=== PATIENT | male | born 1945 | race Hispanic/Latino ===

== ENCOUNTER 2017-11-24 08:54 | Outpatient (CLI) | payer MEDICARE ==
[2017-11-24 09:36] LABS: Anion Gap 11 mmol/L (10-20); BUN (Urea Nitrogen) 13 mg/dL (8.4-25.7); Calc. Creatinine Clearance 0 mL/min (70-130); Calcium 9.9 mg/dL (7.8-10.44); Carbon Dioxide 28 mmol/L (23-31); Chloride 101 mmol/L (98-107); Estimated GFR-MDRD 81; Glucose 101 mg/dL (83-110); Potassium 4.2 mmol/L (3.5-5.1); Sodium 136 mmol/L (136-145)
--- NOTE | 2017-11-24 11:16 | CT ---
CT ABDOMEN AND PELVIS WITHOUT AND WITH CONTRAST: COMPARISON: None. History Hematuria. Hypertension. TECHNIQUE: Multiple contiguous axial images were obtained in a CT of the abdomen and pelvis without and with IV contrast. Postcontrast images were obtained in the nephrographic and expiratory phases. Coronal ref ormats were performed. FINDINGS: The kidneys show no evidence of calcifications or hydronephrosis. There are hypodensities in the gordy ateral kidneys which are too small to characterize. Both ureters are normal in appearance without foc al abnormality. The urinary bladder is unremarkable. No filling defects are present within the nav l collecting systems. The liver, gallbladder, adrenal glands, spleen, and pancreas are unremarkable. No free air, free flu id, or stranding changes are seen in the abdomen or pelvis. The small bowel are unremarkable. There is scattered diverticula in the colon. The appendix is not definitely seen. Atherosclerotic calcifications are seen in the aorta. No abdominal or pelvic lymphadenopathy are see n. Degenerative changes are seen in the spine. The visualized inferior thorax and abdominal wall soft t issues are unremarkable. IMPRESSION: 1. Bilateral renal hypodensities are too small to definitely characterize but could represent small cysts. 2. Diverticulosis. POS: [facility]
[2017-11-24] MEDS ORDERED: Iopamidol 370 76% 100 ML VIAL ONE (15:48)
== END 2017-11-24 08:55 | disposition home or self-care (01) ==
LOC: CT 08:54
PROVIDERS: ATTEND Urology
DX: R31.29 Other microscopic hematuria (principal); K57.90 Diverticulosis of intestine, part unspecified, without perforation or abscess without bleeding
CPT/HCPCS: 74178; 80048

== ENCOUNTER 2018-12-16 07:52 | Outpatient (CLI) | payer MEDICARE ==
--- NOTE | 2018-12-16 10:19 | MRI ---
MRI RIGHT KNEE WITHOUT IV CONTRAST: HISTORY: S83.241, tear medial meniscus with constant right knee pain and swelling. FINDINGS: There is evidence for suprapatellar joint fluid and suprapatellar joint distention. Fairly extensive , irregular cartilage loss noted involving the patellar cartilage, medially, laterally, and centrally , with some subchondral cystic changes of the lateral facet. There is irregular cartilage loss in th e trochlear groove and also in the medial compartment, with a small focus of osteochondral abnormal m arrow signal of the medial femoral condyle secondary to a probable more remote appearing osteochondra l injury. The lateral meniscus is unremarkable. There is abnormal signal associated with the medial meniscus, evidence for a complex tear, which appears to have a flap component as well as a fairly pr ominent horizontal component involving the posterior horn and extending into the body. There is some abnormal height signal associated with the popliteus tendon insertion, evidence for mucoid degenerat ion. The fibular collateral ligament and the biceps femoris tendon insertion regions appear unremark able. The medial collateral ligament complex appears unremarkable. The quadriceps and patellar tend ons are intact. There is some superficial infrapatellar fluid, raising concern for bursitis. There is some increased signal within the semimembranosus tendon, evidence for some tendinopathy, as well a s some slightly loculated appearing fluid within the semimembranosus bursa, raising concern for semim embranosus bursitis. IMPRESSION: 1. Suprapatellar joint fluid with distention, evidence for effusion. 2. Complex tear of the medial meniscus. 3. Evidence for chondromalacia patella with some medial compartment cartilage loss, as well as a sma ll focal osteochondral defect of the medial femoral condyle, evidence for some semimembranosus tendin osis and somewhat loculated fluid in the semimembranosus bursa, evidence for possible bursitis. 4. Some superficial fluid in the superficial prepatellar region, concerning for the possibility of a ssociated bursitis. 5. Minimal increased signal within the popliteus tendon, at the insertion, possibly some tendinopath y. 6. Other findings as above. POS: [facility]
== END 2018-12-16 07:53 | disposition home or self-care (01) ==
LOC: BICMRI 07:52
PROVIDERS: ATTEND Orthopaedic Surgery
DX: S83.231A Complex tear of medial meniscus, current injury, right knee, initial encounter (principal); M25.461 Effusion, right knee; M22.41 Chondromalacia patellae, right knee; M76.9 Unspecified enthesopathy, lower limb, excluding foot

== ENCOUNTER 2018-12-28 00:26 | Outpatient (CLI) | payer MEDICARE ==
[2018-12-28 15:25] LABS: #Basophils 0.1 thou/uL (0.0-0.2); #Eosinphils 0.4 thou/uL (0.0-0.7); #Lymphocytes 1.8 thou/uL (1.20-3.40); #Monocytes 0.6 thou/uL (0.11-0.59); #Neutrophils 6.1 thou/uL (1.40-6.50); %Basophils 0.8 % (0.0-1.0); %Eosinophils 4.7 % (0.0-10.0); %Lymphocytes 19.7 % (21.0-51.0); %Neutrophils 67.9 % (42.0-75.0); Mean Corpuscular HGB CONC 32.6 g/dL (32.0-36.0); Mean Corpuscular Hemoglobin 28.5 pg (27.0-31.0); Mean Corpuscular Volume 87.3 fL (78.0-98.0); Mean Platelet Volume 7.1 fL (7.4-10.4); Platelet Count 266 thou/uL (130-400); RBC Distribution Width 12.1 % (11.5-14.5); Red Blood Cell (RBC) Count 4.92 mill/uL (4.70-6.10)
[2018-12-28 15:44] LABS: Anion Gap 14 mmol/L (10-20); BUN (Urea Nitrogen) 12 mg/dL (8.4-25.7); Calc. Creatinine Clearance 0 mL/min (70-130); Carbon Dioxide 25 mmol/L (23-31); Chloride 105 mmol/L (98-107); Estimated GFR-MDRD 76; Glucose 113 mg/dL (83-110); Potassium 3.7 mmol/L (3.5-5.1); Sodium 140 mmol/L (136-145)
--- NOTE | 2018-12-29 07:50 | EKG ---
Test Reason : Blood Pressure : / mmHG Vent. Rate : 075 BPM Atrial Rate : 075 BPM P-R Int : 140 ms QRS Dur : 080 ms QT Int : 370 ms P-R-T Axes : 048 026 013 degrees QTc Int : 413 ms Normal sinus rhythm with sinus arrhythmia Artifact noted ? electrical. Normal ECG When compared with ECG of 15-NOV-2015 10:05, Vent. rate has increased BY 33 BPM Confirmed by ZELDA JACOBS ([id number]) on 12/29/2018 7:49:28 AM Referred By: OSCAR Confirmed By:ZELDA JACOBS
== END 2018-12-28 00:27 | disposition home or self-care (01) ==
LOC: LABBT 00:26
PROVIDERS: ATTEND Orthopaedic Surgery
DX: Z01.818 Encounter for other preprocedural examination (principal); S83.241A Other tear of medial meniscus, current injury, right knee, initial encounter
CPT/HCPCS: 80048; 85025; 93005; 93010

== ENCOUNTER 2019-01-01 06:24 | Day surgery (SDC) | payer MEDICARE ==
[2018-12-28 14:14] VITALS: BMI 26.3
[2019-01-01] MEDS ORDERED: PROPOFOL 20 ML ONE (08:04)
--- NOTE | 2019-01-01 09:58 | OP ---
DATE OF PROCEDURE: 01/01/2019 PREOPERATIVE DIAGNOSIS: Medial and lateral meniscus tear, right. POSTOPERATIVE DIAGNOSIS: Medial and lateral meniscus tear, right. ANESTHESIA: General. ESTIMATED BLOOD LOSS: Minimal. SPECIMEN: None. DRAINS: None. COMPLICATION: None. TOURNIQUET: Not used. DESCRIPTION OF PROCEDURE: The patient was taken to the operating room, where general anesthesia was induced. The right leg was prepped and draped in usual sterile fashion. I placed the scope through a lateral portal and probe through a medial portal. FINDINGS OF SURGERY: Very mild chondromalacia patella, some grade 3 chondromalacia, medial femoral condyle. Lateral compartment did not have any arthritis, complex tear of the medial and lateral meniscus, intact ACL. Using a scope and basket forceps, removed a good portion of the medial meniscus, took this all the way back to a stable rim and probing then confirmed it was stable. I used a shaver to smooth the margins of the meniscectomy. The same was procedure performed on the lateral compartment using basket forceps to begin the meniscectomy and completed this with a shaver. Probing confirmed it was stable. Irrigation performed copiously to remove all the loose piece of cartilage from the meniscectomy after irrigating the knee and draining it. Sterile dressings applied. Job ID: [id number]
[2019-01-01] MEDS ORDERED: Bupivacaine HCl 0.5%/Epinephrine 1:200,000/PF 30 ml Vial ONE (14:08)
[2019-01-01] MEDS ORDERED: Lidocaine 2% w/Epinephrine 1:200K 20 ML VIAL ONE (14:08)
[2019-01-01] MEDS ORDERED: PROPOFOL 200 MG/20 ML VIAL ONE (15:51)
[2019-01-01] MEDS ORDERED: Lidocaine 1% PF 5 ML VIAL ONE (15:51)
[2019-01-01] MEDS ORDERED: Ondansetron PF 4 MG/2 ML Vial ONE (15:51)
== END 2019-01-01 12:15 | disposition home or self-care (01) ==
LOC: SDC 06:24
PROVIDERS: ATTEND Orthopaedic Surgery
PROC: 0SBC4ZZ Excision of Right Knee Joint, Percutaneous Endoscopic Approach (ICD-10-PCS; principal; 2019-01-01)
PROC: 0SBC4ZZ Excision of Right Knee Joint, Percutaneous Endoscopic Approach (ICD-10-PCS; 2019-01-01)
DX: S83.231A Complex tear of medial meniscus, current injury, right knee, initial encounter (principal); S83.271A Complex tear of lateral meniscus, current injury, right knee, initial encounter; M22.41 Chondromalacia patellae, right knee; E78.5 Hyperlipidemia, unspecified; I10 Essential (primary) hypertension; K21.9 Gastro-esophageal reflux disease without esophagitis; N52.9 Male erectile dysfunction, unspecified; H81.10 Benign paroxysmal vertigo, unspecified ear; Z79.82 Long term (current) use of aspirin; Z79.899 Other long term (current) drug therapy; Z88.8 Allergy status to other drugs, medicaments and biological substances; Z98.890 Other specified postprocedural states
CPT/HCPCS: J2704

== ENCOUNTER 2019-11-05 08:53 | Outpatient (CLI) | payer MEDICARE ==
[2019-11-05 09:49] LABS: Hemoglobin 15.7 g/dL (14.0-18.0); Mean Corpuscular HGB CONC 33.4 g/dL (32.0-36.0); Mean Corpuscular Hemoglobin 29.1 pg (27.0-31.0); Mean Corpuscular Volume 86.9 fL (78.0-98.0); Mean Platelet Volume 7.3 fL (7.4-10.4); Platelet Count 240 thou/uL (130-400); RBC Distribution Width 12.1 % (11.5-14.5); White Blood Cell (WBC) Count 6.5 thou/uL (4.8-10.8)
[2019-11-05 09:58] LABS: PTT 27.3 SEC (22.9-36.1); Prothrombin Time 12.9 SEC (12.0-14.7)
[2019-11-05 10:12] LABS: Bacteria/HPF None Seen HPF (None Seen); Bilirubin Negative (Negative); Blood, Urine Negative (Negative); Clarity Clear (Clear); Glucose, Urine (Dipstick) Normal (Negative); Leukocyte Negative Leu/uL (Negative); Mucous/LPF Rare LPF (<2+); Nitrite Negative (Negative); Protein, Urine (Dipstick) Negative (Neg-Trace); RBC/HPF 0-3 HPF (0-3); Squamous Epithelial None Seen HPF (0-3); Urobilinogen Normal mg/dL (Less than 2); WBC/HPF 0-3 HPF (0-3)
[2019-11-05 10:19] LABS: Anion Gap 12 mmol/L (10-20); BUN (Urea Nitrogen) 10 mg/dL (8.4-25.7); Calc. Creatinine Clearance 0 mL/min (70-130); Calcium 9.6 mg/dL (7.8-10.44); Carbon Dioxide 30 mmol/L (23-31); Chloride 103 mmol/L (98-107); Estimated GFR-MDRD 80; Glucose 118 mg/dL (83-110); Potassium 4.1 mmol/L (3.5-5.1); Sodium 141 mmol/L (136-145)
== END 2019-11-05 08:54 | disposition home or self-care (01) ==
LOC: LABBT 08:53
PROVIDERS: ATTEND Urology
DX: Z01.818 Encounter for other preprocedural examination (principal); Z12.5 Encounter for screening for malignant neoplasm of prostate; N40.1 Benign prostatic hyperplasia with lower urinary tract symptoms; R39.198 Other difficulties with micturition; N52.9 Male erectile dysfunction, unspecified; R35.1 Nocturia; N35.919 Unspecified urethral stricture, male, unspecified site; R39.11 Hesitancy of micturition
CPT/HCPCS: 80048; 81001; 85027; 85610; 85730; 87086; 93005; 93010

== ENCOUNTER 2019-11-17 05:51 | Inpatient (IN) | payer MEDICARE ==
[2019-11-05 09:19] VITALS: BMI 28.0
[2019-11-17] MEDS ORDERED: Levofloxacin 500 mg/D5W 100 ml Premix Bag ONE (06:20)
[2019-11-17] MEDS ORDERED: Iothalamate Meglumine 60% 50 ML VIAL FS ONE (06:45)
[2019-11-17] MEDS ORDERED: Fentanyl 100 MCG/2 ML VIAL ONE ×2 (07:14→10:16)
[2019-11-17] MEDS ORDERED: Oxybutynin 5 MG TAB ONE ×3 (08:39→08:40)
[2019-11-17] MEDS ORDERED: Phenazopyridine HCl 97.5 MG TABLET ONE (08:39)
--- NOTE | 2019-11-17 09:55 | OP ---
DATE OF PROCEDURE: 11/17/2019 PREOPERATIVE DIAGNOSES: 1. A 74-year-old male with history of benign prostatic hyperplasia. 2. Meatal stenosis. 3. Nonobstructing urethral strictures. POSTOPERATIVE DIAGNOSES: 1. A 74-year-old male with history of benign prostatic hyperplasia. 2. Meatal stenosis. 3. Nonobstructing urethral strictures. PROCEDURES PERFORMED: Cystoscopy, meatal calibration dilatation, UroLift implant x9. ANESTHESIA: LMA. COMPLICATIONS: None apparent. SPECIMENS: None. ESTIMATED BLOOD LOSS: Minimal. DRAINS: 18-Marshallese 10 mL Jackman catheter to gravity. INDICATIONS FOR PROCEDURE AND HISTORY: Mr. Moralse is a pleasant 74-year-old male, with history of BPH. The patient has had symptoms of BPH, slow stream, hesitancy, and occasional split stream. He underwent workup for UroLift and desired to proceed. Risks and complications of the procedure, has been discussed with him in detail including, but not limited to, bleeding, pain, infection, injury to adjacent organs, chronic pain, injury to adjacent structures distal to the ureteral orifices, neurovascular bundle, chronic pain, possible need for secondary procedure was reviewed with him in detail and he desired to proceed. DESCRIPTION OF PROCEDURE: After an informed consent was signed, the patient was taken to the operating room, placed in a dorsal lithotomy position with the genital area prepped and draped in the usual surgical sterile fashion. We initially attempted TIVA, however, due to laryngospasm, he had to be converted to LMA, in which he tolerated this procedure uneventfully. A 21-Marshallese cystoscope was initially utilized, however, it was difficult to pass due to mild meatal stenosis. His meatus was calibrated to 16-Marshallese, with [place] sounds and subsequently dilated to 26-Marshallese without difficulty. Subsequently, a 21-Marshallese scope passed without significant issues. He does have subtle early bulbar proximal penile urethral strictures, however, these are not obstructing. They were very subtle early annular narrowing, not warranting treatment and I was able to pass the scope without significant issues. Prostatic urethra was staged, which demonstrates bilobar hyperplasia of the prostate demonstrating moderate obstruction. There was asymmetric enlargement of the right lobe. The bladder was entered and the UOs are about 3 to 4 mm in proximal to the bladder neck, there was no evidence of bladder stones of concern. At this time, we transitioned to the UroLift device obturator scope. His urethra was then re-staged and we proceeded to implant the first implant on the left lateral lobe. Care was taken to stay approximately 1.5 cm proximal to the bladder neck. The implant was delivered on the left side and subsequently on the right side. As there was asymmetric enlargement, moreover, more firm right lateral lobe. He did have one implant and right with bone strike , however I was able to salvage the implant and deliver adequately. He did require 6 implants on the right side as right lateral lobe was more challenging to compress with Urolift implant.. With subsequent placement, I was able to create a wide bladder neck. At the level of the verumontanum, there was some apical component, however, this was at the apex and did not warrant treatment, adequate channel more proximally. He tolerated the procedure uneventfully. I was able to pass an 18-Marshallese catheter without significant issues, 10 mL insufflated and attached to gravity bag. He will be discharged with an indwelling Jackman catheter due to concomitant meatal stenosis dilatation. He will see me on Friday for catheter removal. He is discharged with ciprofloxacin for 7 days, Azo p.r.n., he is to continue his Flomax for now. Job ID: [id number] [facility]
[2019-11-17] MEDS ORDERED: Ondansetron PF 4 MG/2 ML Vial ONE (10:05)
[2019-11-17] MEDS ORDERED: Lidocaine 1% PF 5 ML VIAL ONE (10:05)
[2019-11-17] MEDS ORDERED: Glycopyrrolate 0.2 MG/ML 5 ML SYRINGE ONE (10:05)
[2019-11-17] MEDS ORDERED: PROPOFOL 200 MG/20 ML VIAL ONE (10:05)
[2019-11-17] MEDS ORDERED: Meperidine HCl/PF 25 MG/ML VIAL ONE (11:37)
[2019-11-17] MEDS ORDERED: Meropenem 1 GM in Sodium Chloride 0.9% 100 ML IVPB SCH (14:00)
[2019-11-17] MEDS ORDERED: MEROPENEM 1 GM/50 ML 1 GM in Premix Bag 1 BAG IVPB SCH (14:00)
[2019-11-17 14:03] LABS: #Lymphocytes 0.5 thou/uL (1.20-3.40); #Monocytes 0.3 thou/uL (0.11-0.59); #Neutrophils 9.9 thou/uL (1.40-6.50); %Basophils 0.1 % (0.0-1.0); %Eosinophils 0.2 % (0.0-10.0); %Lymphocytes 4.8 % (21.0-51.0); %Monocytes 2.7 % (0.0-10.0); %Neutrophils 92.2 % (42.0-75.0); Hemoglobin 14.5 g/dL (14.0-18.0); Mean Corpuscular HGB CONC 33.4 g/dL (32.0-36.0); Mean Corpuscular Hemoglobin 29.2 pg (27.0-31.0); Mean Corpuscular Volume 87.4 fL (78.0-98.0); Mean Platelet Volume 7.4 fL (7.4-10.4); Platelet Count 219 thou/uL (130-400); Red Blood Cell (RBC) Count 4.98 mill/uL (4.70-6.10); White Blood Cell (WBC) Count 10.7 thou/uL (4.8-10.8)
[2019-11-17] MEDS ORDERED: Acetaminophen 325 MG TAB ONE (14:23)
[2019-11-17 14:25] LABS: Anion Gap 13 mmol/L (10-20); BUN (Urea Nitrogen) 16 mg/dL (8.4-25.7); Calc. Creatinine Clearance 88 mL/min (70-130); Calcium 8.7 mg/dL (7.8-10.44); Carbon Dioxide 23 mmol/L (23-31); Chloride 105 mmol/L (98-107); Estimated GFR-MDRD Greater than 90; Glucose 93 mg/dL (83-110); Potassium 4.1 mmol/L (3.5-5.1); Sodium 137 mmol/L (136-145)
[2019-11-17] MEDS ORDERED: Bisacodyl 10 MG SUPP PR PRN (15:59)
[2019-11-17] MEDS ORDERED: Ondansetron PF 4 MG/2 ML Vial IVP PRN (15:59)
[2019-11-17] MEDS ORDERED: Acetaminophen 500 MG TAB PO PRN (15:59)
[2019-11-17] MEDS ORDERED: Phenazopyridine HCl 97.5 MG TABLET PO PRN (15:59)
[2019-11-17] MEDS ORDERED: Mag-Al 1200 mg/1200 mg/30 ML UDCUP PO PRN (15:59)
[2019-11-17] MEDS ORDERED: hydrALAZINE 20 MG/ML VIAL SLOW IVP PRN ×2 (15:59)
[2019-11-17] MEDS ORDERED: diphenhydrAMINE 50 MG/ML VIAL IVP PRN (15:59)
[2019-11-17] MEDS ORDERED: HYDROcodone/Acetaminophen 5/325 mg Tablet PO PRN ×2 (15:59)
[2019-11-17] MEDS ORDERED: Oxybutynin 5 MG TAB PO PRN (15:59)
[2019-11-17] MEDS ORDERED: Vancomycin HCl 1.25 GM in Sodium Chloride 0.9% 250 ML 250 ML IVPB SCH (17:00)
[2019-11-17] MEDS: Sodium Chloride 0.9% 1,000 ML IV SCH ×3 (20:03→22:44)
[2019-11-17] MEDS ORDERED: Vancomycin HCl 1 GM in Premix Bag 1 BAG IVPB SCH (21:00)
[2019-11-17] MEDS: Docusate 100 MG CAP PO SCH (21:23)
[2019-11-17] MEDS: MEROPENEM 1 GM/50 ML 1 GM in Premix Bag 1 BAG IVPB SCH (21:23)
[2019-11-17] MEDS: Famotidine/PF 20 mg/2ml Vial SLOW IVP SCH (21:23)
--- NOTE | 2019-11-17 22:20 | CON ---
DATE OF CONSULTATION: 11/17/2019 REQUESTING PHYSICIAN: Erin Araya DO REASON FOR CONSULTATION: Postoperative medical management. HISTORY OF PRESENT ILLNESS: This is a 74-year-old male with past medical history of hypertension, dyslipidemia, seasonal allergies, receiving unspecified injections and BPH, on medication therapy, who underwent urologic procedure by Dr. Araya on 11/17/2019 for progressive urinary symptoms with operative note suggesting cystoscopy with meatal calibration and dilatation and UroLift implant x9. Preoperatively, the patient was noted to have received Levaquin 500 mg and postoperatively, the patient began to experience rigors and cold chills lasting 30 minutes along with a temperature of reportedly greater than 102. The patient had blood work with CBC, BMP, blood cultures x2 and urine cultures from catheter site. He was administered IV Demerol, IV fluids with normal saline 150 mL/h and initiated on IV vancomycin and IV meropenem and admitted for further evaluation. At bedside, the patient was accompanied by his spouse. He denies any recurrent rigors. He notes similar episode 3 months ago and attributed to his allergy shot. He notes some minimal discomfort at the catheter site. Denies any diaphoresis, nausea, vomiting, diarrhea, angina, dyspnea, or any other acute complaints. He has been ambulatory. Nursing staff notes no acute events. PAST MEDICAL HISTORY: BPH, hypertension, dyslipidemia, seasonal allergies. PAST SURGICAL HISTORY: Herniorrhaphy. SOCIAL HISTORY: The patient is , lives at home with his spouse. He denies tobacco or illicit drug use. He notes social beer use on weekends. ALLERGIES: NONE REPORTED. REVIEW OF SYSTEMS: Pertinent positives as per HPI. Remainder of review of systems negative. MEDICATIONS: Reviewed as per admission medication reconciliation. Inpatient medications reviewed. FAMILY HISTORY: The patient denies any chronic medical comorbidities in family members. PHYSICAL EXAMINATION: VITAL SIGNS: Current temperature 99.5, pulse 57, blood pressure 115/70, oxygen saturation 94% on room air, respirations 16. GENERAL APPEARANCE: This is an elderly male, who is awake, alert, oriented, coherent, lucid, nontoxic in appearance, speaking in full complete sentences. HEENT: Normocephalic, atraumatic. No facial asymmetry. Pupils are equally round. Extraocular muscles are intact. No conjunctival pallor. Mucous membranes are moist. NECK: Supple. CARDIOVASCULAR: S1, S2. Regular rate and rhythm. No harsh murmurs. No reproducible chest wall tenderness to palpation. LUNGS: Bilateral equal air entry on posterior auscultation. Symmetrical chest expansion. No wheezing or rales. ABDOMEN: Soft, nontender, nondistended. EXTREMITIES: No abrasions, cyanosis, or deformities. SKIN: Warm to touch without rash or pallor. GENITOURINARY: Indwelling Jackman catheter with yellow-colored urine. There is urethral meatus tip and paraumbilical region with mild palpation. LABORATORY DATA: WBC 10.7, H and H 14.5/43.5, platelets 219. Chemistry; sodium 137, potassium 4.1, chloride 105, bicarb 23, glucose 93, BUN/creatinine 16/0.82, calcium 8.7. Microbiology culture, no culture results noted. ASSESSMENT: 1. Postoperative fevers, chills, and rigors. Concern for infectious etiology, noting urologic procedure with possible bacterial translocation or infection from instrumentation. The patient had noted orders for blood cultures and urine cultures from catheter ordered by urologist. He was given IV Demerol and has been started on IV vancomycin and meropenem, which can be continued at this time and could be deescalated when the fevers defervesced. Continue to monitor microbiology cultures. Monitor vital signs. No other obvious signs of infection noted at this time. 2. Hypertension, benign. Continue home lisinopril and hydrochlorothiazide. 3. Dyslipidemia. Continue Lipitor. 4. Gastroesophageal reflux disease. Continue PPI. 5. Baseline status post cystoscopy with meatal dilatation and UroLift implant x9 on 11/17/2019. Dr. Araya for benign prostatic hypertrophy and progressive urinary symptoms. 6. History of herniorrhaphy. 7. Deep venous thrombosis prophylaxis; SCDs and ambulation. Thank you for this consultation. We will follow patient along with you while hospitalized. Job ID: [id number]
[2019-11-18] MEDS: Sodium Chloride 0.9% 1,000 ML IV SCH ×5 (03:25→21:33)
[2019-11-18] MEDS: Vancomycin HCl 1.25 GM in Sodium Chloride 0.9% 250 ML 250 ML IVPB SCH ×2 (03:29→16:52)
[2019-11-18] MEDS: MEROPENEM 1 GM/50 ML 1 GM in Premix Bag 1 BAG IVPB SCH ×3 (05:19→21:33)
[2019-11-18 05:33] LABS: #Eosinphils 0.2 thou/uL (0.0-0.7); #Lymphocytes 1.5 thou/uL (1.20-3.40); #Monocytes 0.7 thou/uL (0.11-0.59); #Neutrophils 11.4 thou/uL (1.40-6.50); %Basophils 0.3 % (0.0-1.0); %Eosinophils 1.7 % (0.0-10.0); %Lymphocytes 11.1 % (21.0-51.0); Hemoglobin 12.4 g/dL (14.0-18.0); Mean Corpuscular HGB CONC 33.1 g/dL (32.0-36.0); Mean Corpuscular Hemoglobin 29.2 pg (27.0-31.0); Mean Corpuscular Volume 88.2 fL (78.0-98.0); Mean Platelet Volume 7.3 fL (7.4-10.4); Platelet Count 196 thou/uL (130-400); Red Blood Cell (RBC) Count 4.25 mill/uL (4.70-6.10); White Blood Cell (WBC) Count 13.9 thou/uL (4.8-10.8)
[2019-11-18 05:52] LABS: Anion Gap 6 mmol/L (10-20); BUN (Urea Nitrogen) 12 mg/dL (8.4-25.7); Calc. Creatinine Clearance 90 mL/min (70-130); Calcium 8.2 mg/dL (7.8-10.44); Carbon Dioxide 28 mmol/L (23-31); Chloride 109 mmol/L (98-107); Estimated GFR-MDRD Greater than 90; Glucose 105 mg/dL (83-110); Sodium 139 mmol/L (136-145)
[2019-11-18] MEDS ORDERED: Polyethylene Glycol 3350 17 GM Packet PO PRN (08:07)
--- NOTE | 2019-11-18 08:32 | PRG ---
DATE OF SERVICE: 11/18/2019 SUBJECTIVE: The patient is feeling well, he denies recurrence of fever, chills, rigors. Feeling well. He is having adequate oral intake. Patient seen by Hospitalist yesterday. OBJECTIVE: VITAL SIGNS: Currently are stable. He is 98, 16, 93, 113/61, 93% on room air, heart rate 57 to 48, asymptomatic for bradycardia. ABDOMEN: Soft, nontender, nondistended. GENITOURINARY: Jackman catheter demonstrating yellow, clear urine with no significant hematuria of concern. Preop urine culture negative. Repeat blood culture, urine culture is pending so far. Patient currently on vancomycin and meropenem. IMPRESSION AND PLAN: 1. Mr. Morales is a 74-year-old male with history of benign prostatic hypertrophy, postop day #1, status post meatal dilatation, UroLift implant for BPH procedure. The patient with history of postop fever, rigors. Blood culture, urine culture negative thus far. His labs are stable with white count of 13, hemoglobin 12, creatinine is 0.8. I will continue the broad-spectrum antibiotic therapy until culture and sensitivity has returned. If cultures are negative, I will consider Infectious Disease consult. 2. Similar episode of fever, rigors after allergy injection 3 months ago with workup negative, i.e., CT lumbar puncture, chest x-ray negative, was also seen by Dr. Smart at that time with negative cultures. 3. Recent fever, rigors can be due to possible transient bacteremia despite negative urine culture on appropriate antibiotic regimen preop. The patient is informed that I will keep him in-house until culture result has been finalized. The patient agrees to be observed. Continue ambulation, DVT prophylaxis with bilateral SCDs , increase mobility. 4. History of sinus bradycardia tachycardia syndrome, followed by Dr. Bentley with normal stress test. The patient is currently asymptomatic. If he develops symptoms, Cardiology consult will be indicated. Appreciate Hospitalist consult. Job ID: [id number] [facility]
--- NOTE | 2019-11-18 08:41 | CON ---
DATE OF CONSULTATION: PRIMARY CARE PHYSICIAN: Jey Garcia MD HISTORY OF PRESENT ILLNESS: Mr. Morales is a 74-year-old male, Faroese-speaking, with history of BPH, prior history of inguinal hernia repair, in which Flomax was initially initiated by General Surgery due to symptoms of BPH. He has symptoms of hesitancy, slow stream, occasional split stream. Denies prior history of recurrent UTI, gross hematuria, or history of STDs. Digital rectal exam is grossly unremarkable, he underwent cystoscopy, which demonstrated nonobstructing multi-annular bulbar stricture, not warranting treatment. However, he does have meatal stenosis, which was calibrated and dilated today with concomitant UroLift surgery due to symptoms of BPH. Surgical procedure was unremarkable and uneventful, he had an indwelling Jackman catheter to be discharged as meatal stenosis was also dilated. I was monitoring him in the recovery room, then subsequently transitioned to Day Stay; however, he developed rigors, fever of 102. He does complain of throat irritation, as TIVA anesthesia was performed initially, due to laryngospasm transitioned to LMA by Anesthesia. Minimal EBL was noted; however, due to sudden fever and rigors, BMP, CBC/cx was obtained, which demonstrates no evidence of leukocytosis. Hemoglobin stable at 14.5, BMP profile is grossly unremarkable. With fluids, Tylenol, his fever defervesced, currently 100.6, blood pressure and vital signs are stable and resting comfortably. He relates that similar event occurred in August 2019. His chart was reviewed, he has 2 medical records of note. It appears that after he was given an allergy medication by his Patient Registration Supervisor, Dr. Braulio Juarez, he developed fever, rigors, and was admitted. Workup with lumbar puncture, CT of the brain, chest x-ray was negative. Cultures did not finalize for something definitively treated and he was seen by Dr. Smart. Due to fever and rigors, I do recommend observation with broad-spectrum antibiotic therapy. He was provided Levaquin on-call to OR, I did provide him a dose of meropenem and vancomycin. Currently, he is resting comfortably and urine output is clear, Pyridium tinged. PAST MEDICAL HISTORY: Include hyperlipidemia, hypertension, GERD, ED, vertigo, history of inguinal hernia, sinus bradycardia-tachycardia syndrome, followed by Dr. Bentley, history of microscopic hematuria. PAST SURGICAL HISTORY: 1. Knee surgery, right and left 2001. 2. Shoulder surgery, bilateral. 3. Right arm laceration repair. 4. History of colonoscopy, 2003. 5. Bilateral inguinal hernia repair with mesh by Dr. Pierre in 2015. 6. Colonoscopy, polypectomy 2015. His prior stress test, February 2017, normal. 7. Prior history of cystoscopy demonstrating nonobstructing bulbar stricture, BPH with no median lobe. 8. Right medial meniscus surgery, December 2018. 9. Office cystoscopy, chest volume study, October 2019. 10. He is postop day #0 cysto, meatal calibration, dilatation, UroLift implant. FAMILY HISTORY: Noncontributory. SOCIAL HISTORY: Lives with his spouse. ALLERGIES: LISINOPRIL. REVIEW OF SYMPTOMS: A 10-point review of systems as above, otherwise noncontributory. PHYSICAL EXAMINATION: VITAL SIGNS: He had T-max of 102, T-current is 100.6, blood pressure 145/80, heart rate 108, respiration 18, oxygen saturation 98%. GENERAL: The patient is currently in no acute distress. Eating, has good appetite. HEENT: Grossly unremarkable. HEART: Regular rate. LUNGS: Clear. ABDOMEN: Soft, nontender, nondistended. No rigidity. No rebound. GENITOURINARY: Jackman catheter demonstrating Pyridium tinged urine with no significant clots. EXTREMITIES: No cyanosis, clubbing, or edema. NEUROLOGIC: No gross focal deficits. PSYCHIATRIC: Appears to be appropriate and intact. PERTINENT IMAGING: CT, November 2017, demonstrates bilateral renal cyst. No hydronephrosis. IMPRESSION AND PLAN: Mr. Morales is a pleasant 74-year-old male with history of BPH, well known to me, postop day #0, meatal calibration, dilation and UroLift implant for BPH symptoms. Due to postop fever, rigors of unclear etiology, the patient will need to be admitted. He had similar event of fever and rigors after allergy medication in August 2019 with negative workup. Possibility of allergic reaction versus transient bacteremia despite negative urine culture was reviewed with him in detail. I did discuss this case with the hospitalist, regarding pertinent clinical history. We will continue meropenem, vancomycin for now, pending his clinical assessment, I would consider Infectious Disease consult if indicated. I informed the patient that he will need to be admitted at least until the cultures have finalized. Job ID: [id number] [facility]
[2019-11-18] MEDS ORDERED: Lisinopril 10 MG TAB PO SCH (09:00)
[2019-11-18] MEDS ORDERED: Hydrochlorothiazide 25 MG TAB PO SCH (09:00)
[2019-11-18 09:10] LABS: ALT (SGPT) 20 U/L (8-55); AST (SGOT) 21 U/L (5-34); Albumin 3.5 g/dL (3.4-4.8); Alkaline Phosphatase 67 U/L (40-110); Bilirubin, Direct 0.6 mg/dL (0.1-0.3); Bilirubin, Total 1.4 mg/dL (0.2-1.2); Protein, Total 6.3 g/dL (5.8-8.1)
--- NOTE | 2019-11-18 09:29 | RAD ---
EXAM: Chest PA and lateral: HISTORY: Fever. Evaluate for pneumonia. COMPARISON: 08/25/2019 FINDINGS: Heart: Upper normal cardiac silhouette. Aorta: Unremarkable Pulmonary vessels: Normal Costophrenic angles: Costophrenic angles are clear. Lungs: No consolidation or masses. Chronic interstitial changes. Pneumothorax: No pneumothorax Osseous structures: No osseous abnormalities IMPRESSION: No acute cardiopulmonary process.
[2019-11-18] MEDS: Famotidine/PF 20 mg/2ml Vial SLOW IVP SCH ×2 (10:02→20:06)
[2019-11-18] MEDS: Docusate 100 MG CAP PO SCH ×2 (10:03→20:06)
[2019-11-18] MEDS: Tamsulosin HCl 0.4 MG CAP PO SCH (10:03)
--- NOTE | 2019-11-18 18:11 | PDOC.HOSPP ---
- Subjective Encounter Date: 11/18/19 Encounter Time: 14:00 Subjective: Patient seen and examined for post op fever. No new episodes of fever or chills. No skin rash, AMS, cough or SOB. No new complaints. No overnight events - Objective Vital Signs & Weight: Vital Signs (12 hours) Temp Pulse Resp BP BP Pulse Ox 11/18/19 15:09 97.6 F 48 L 16 156/80 H 96 11/18/19 11:21 98.2 F 50 L 16 137/70 95 11/18/19 07:58 98.1 F 42 L 16 132/75 96 Weight Weight 174 lb I&O: 11/17/19 11/18/19 11/19/19 06:59 06:59 06:59 Intake Total 2450 Output Total 2875 Balance -425 Result Diagrams: 11/18/19 05:02 11/18/19 05:02 Additional Labs: Microbiology 11/17/19 13:52 Venous blood - Right Hand Blood Culture - Preliminary Specimen has been received and culture in progress. No Growth to date. 11/17/19 13:52 Venous blood - Right Arm Blood Culture - Preliminary Specimen has been received and culture in progress. No Growth to date. 11/17/19 13:30 Urine spencer catheter Urine Culture - Preliminary NO GROWTH AT 24 HOURS Laboratory Tests 11/18/19 11/18/19 08:35 08:35 Total Bilirubin 1.4 H Direct Bilirubin 0.6 H TSH 3rd Generation 1.9815 Radiology Reviewed by me: Yes (CXR - no infiltrate) Hospitalist ROS - Review of Systems Respiratory: denies: cough, dry, shortness of breath, hemoptysis, SOB with excertion, pleuritic pain, sputum, wheezing, other Cardiovascular: denies: chest pain, palpitations, orthopnea, paroxysmal noc. dyspnea, edema, light headedness, other Gastrointestinal: denies: nausea, vomiting, abdominal pain, diarrhea, constipation, melena, hematochezia, other - Medication Medications: Active Medications Generic Name Dose Route Start Last Admin Trade Name Freq PRN Reason Stop Dose Admin Docusate Sodium 100 mg 11/17/19 21:00 11/18/19 10:03 Colace PO 100 mg BID ANTONIA Administration Famotidine 20 mg 11/17/19 21:00 11/18/19 10:02 Pepcid SLOW IVP 20 mg Q12HR ANTONIA Administration Meropenem 1 gm/ Device 50 mls @ 100 mls/hr 11/17/19 22:00 11/18/19 15:18 IVPB 50 mls Q8HR ANTONIA Administration Vancomycin HCl 1.25 gm/ Sodium 250 mls @ 166.667 mls/hr 11/18/19 04:00 16:52 Chloride IVPB 250 mls 0400,1600 ANTONIA Administration Sodium Chloride 1,000 mls @ 100 mls/hr 11/18/19 07:02 11/18/19 10:02 Normal Saline 0.9% IV Not Given .Q10H ANTONIA Tamsulosin HCl 0.4 mg 11/18/19 09:00 11/18/19 10:03 Flomax PO 0.4 mg DAILY ANTONIA Administration - Exam General Appearance: NAD Neck: supple, no JVD Heart: RRR, no murmur, no gallops, no rubs, normal peripheral pulses Respiratory: CTAB, no wheezes, no rales, no ronchi, normal chest expansion Gastrointestinal: soft, non-tender, non-distended, normal bowel sounds Neurological: no new deficit Psychiatric: normal affect, A&O x 3 Hosp A/P - Plan DVT proph w/SCDs Sepsis ?etio Postoperative fever Hypertension Hyperlipidemia Abn LFTS prob due to chronic alcohol use PLAN: Cultures negative Cont IV Vancomycin/Meropenem Monitor Vancomycin level Repeat labs in AM
[2019-11-18] MEDS ORDERED: Atorvastatin Calcium 20 MG TAB PO SCH (21:00)
[2019-11-18] MEDS ORDERED: Prevnar 13-Val Conj/PF 0.5 ML SYRINGE IM ONE (21:00)
[2019-11-19 03:47] LABS: #Basophils 0.1 thou/uL (0.0-0.2); #Eosinphils 0.5 thou/uL (0.0-0.7); #Lymphocytes 1.8 thou/uL (1.20-3.40); #Monocytes 0.9 thou/uL (0.11-0.59); #Neutrophils 8.1 thou/uL (1.40-6.50); %Basophils 0.5 % (0.0-1.0); %Eosinophils 4.1 % (0.0-10.0); %Lymphocytes 16.2 % (21.0-51.0); %Monocytes 7.7 % (0.0-10.0); %Neutrophils 71.6 % (42.0-75.0); Hemoglobin 12.4 g/dL (14.0-18.0); Mean Corpuscular HGB CONC 32.8 g/dL (32.0-36.0); Mean Corpuscular Hemoglobin 28.7 pg (27.0-31.0); Mean Corpuscular Volume 87.5 fL (78.0-98.0); Mean Platelet Volume 7.6 fL (7.4-10.4); Platelet Count 188 thou/uL (130-400); RBC Distribution Width 12.1 % (11.5-14.5); Red Blood Cell (RBC) Count 4.33 mill/uL (4.70-6.10); White Blood Cell (WBC) Count 11.3 thou/uL (4.8-10.8)
[2019-11-19 04:14] LABS: ALT (SGPT) 21 U/L (8-55); AST (SGOT) 22 U/L (5-34); Albumin 3.3 g/dL (3.4-4.8); Alkaline Phosphatase 77 U/L (40-110); Anion Gap 9 mmol/L (10-20); BUN (Urea Nitrogen) 12 mg/dL (8.4-25.7); Bilirubin, Total 0.8 mg/dL (0.2-1.2); Calc. Creatinine Clearance 89 mL/min (70-130); Calcium 8.1 mg/dL (7.8-10.44); Carbon Dioxide 24 mmol/L (23-31); Chloride 110 mmol/L (98-107); Estimated GFR-MDRD Greater than 90; Globulin 2.7 g/dL (2.4-3.5); Glucose 112 mg/dL (83-110); Potassium 3.8 mmol/L (3.5-5.1); Sodium 139 mmol/L (136-145); Vancomycin, Trough 11.1 ug/mL
[2019-11-19] MEDS: Vancomycin HCl 1.25 GM in Sodium Chloride 0.9% 250 ML 250 ML IVPB SCH ×2 (04:54→17:59)
[2019-11-19] MEDS: MEROPENEM 1 GM/50 ML 1 GM in Premix Bag 1 BAG IVPB SCH ×2 (05:57→17:59)
--- NOTE | 2019-11-19 08:00 | PRG ---
DATE OF SERVICE: 11/19/2019 SUBJECTIVE: The patient without complaints, doing well, fever and rigors have resolved for more than 36-48 hours. He is doing well. OBJECTIVE: VITAL SIGNS: Stable. He is afebrile. 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 Heart rate has been variable from 43 to 72, asymptomatic. GENERAL: The patient is in no acute distress. I's and O's 5520 in and 2100 out. He is positive 3 L. ABDOMEN: Soft, nontender, nondistended. : Jackman catheter draining yellow clear urine. PERTINENT LABORATORY DATA: White count of 11, hemoglobin stable at 12, and platelet of 188. No significant shift or bandemia. Creatinine stable at 0.8. Blood culture, urine culture negative thus far. IMAGING STUDIES: Chest x-ray negative. IMPRESSION AND PLAN: Mr. Morales is a 74-year-old male with history of benign prostatic hypertrophy postoperative day #2. 1. Status post meatal dilatation, UroLift implant for a benign prostatic hypertrophy. The patient developed postoperative fever, rigors. Blood culture and urine culture negative thus far. He has no evidence of leukocytosis, bandemia. Chest x-ray negative. The patient currently on meropenem, vancomycin. 2. Similar episode of fever, rigors after allergy injection 3 months ago. Workup negative. He was seen by Dr. Smart. Lumbar puncture, CT of the head, chest x-ray negative then. 3. History of sinus bradycardia-tachycardia syndrome, currently asymptomatic, followed by Dr. Bentley. PLAN: I did discuss this case with Dr. Smart today. I plan to discharge him with antibiotics as he has an indwelling Jackman catheter, I would appreciate Infectious Disease eval, recommendations for antibiotic for discharge. I do plan on antibiotic therapy over the weekend until I see him next week for Jackman catheter removal. Await ID input. Anticipate discharge this afternoon with appropriate antibiotic therapy. The patient is stable. Job ID: [id number]
[2019-11-19 08:17] VITALS: TEMP 98.1
[2019-11-19] MEDS: Tamsulosin HCl 0.4 MG CAP PO SCH (09:52)
[2019-11-19] MEDS: Docusate 100 MG CAP PO SCH (09:52)
[2019-11-19] MEDS: Famotidine/PF 20 mg/2ml Vial SLOW IVP SCH (09:52)
--- NOTE | 2019-11-19 11:22 | CON ---
DATE OF CONSULTATION: 11/19/2019 REASON FOR CONSULTATION: Fever, recurrence. HISTORY OF PRESENT ILLNESS: A 74-year-old patient, whom I had seen in 08/2019, when he presented with a history of rhinitis, hyperlipidemia, hypertension, and had been receiving regular courses of allergy shots, developed sudden onset of fever. He had a workup in the hospital, which was essentially negative including CT scan of abdomen and pelvis, blood cultures, urine culture, urinalysis. The patient also has a history of BPH, for which he was receiving oral medication with some improvement. He was discharged without any specific diagnosis and he was readmitted after being asymptomatic or very little symptoms of BPH for definitive procedure, which was a UroLift procedure, which was done 2 days ago. In the recovery room, he had a temperature elevation up to 102. Cultures were taken and everything thus far has not yielded any positive results. He is feeling better. Had some headaches during the temperature event, but those have improved. No visual symptoms, sore throat, odynophagia, or dysphagia. He has had dental problems and was diagnosed with "dental infections," but has not taken care of it because of the cost. A little bit of cough. No chest pain. No dyspnea. No abdominal pain or diarrhea. He has an indwelling Jackman catheter. He has a little bit of joint pain in the knees, but that is chronic. No new things. No back pain. No known skin disorder. No neurological symptoms. MEDICAL HISTORY: 1. Rhinitis. 2. BPH. 3. Hyperlipidemia. 4. One episode of fever of unknown origin, which was brief in the recent past. ALLERGIES: NONE. MEDICATIONS: Currently on: 1. Mather. 2. Maalox. 3. Lipitor. 4. Dulcolax. 5. Benadryl. 6. Colace. 7. Pepcid. 8. Meropenem. 9. Oxybutynin. 10. Protonix. 11. Vancomycin. FAMILY HISTORY: Noncontributory. SOCIAL HISTORY: Never smoker. He is retired and lives in [place], with . PHYSICAL EXAMINATION: VITAL SIGNS: T-max 99.5, actually was 102 in the recovery area, seems to have defervesced since; BP 140/70; pulse 53; respirations of 16 to 20; and O2 saturation 97. GENERAL: Sitting by the bedside, appears in no distress, oriented. SKIN: Normal. Peripheral IV access, Jackman catheter. No lymphadenopathy. HEENT: Ocular movements conjugate. Oral cavity, he has still quite a few teeth in place with some decay and gum disease. NECK: Supple. No jugular vein distention or carotid bruits. No thyromegaly. LUNGS: Diminished breath sounds in the right base with a few crackles there. HEART: S1 and S2. Regular rate without murmurs. No S3 or S4. ABDOMEN: Soft, not distended or tender. No ascites. No bladder distention. No organomegaly. EXTREMITIES: No joint inflammatory activity noted. Pulses 1+ in dorsalis pedis. No edema. Plantar responses are flexor. Moves extremities equally. NEUROLOGIC: Cognitive function appears to be intact. LABORATORY DATA: White cell count went up from 10 to 13.9, now is down to 11.3; platelets 188; he had 92% neutrophils, down to 71 at this time. Creatinine 0.8. Bilirubin was up to 1.4 and direct 0.6 and albumin was 3.3. Two sets of blood cultures, thus far no growth. Urine culture, no growth in 48 hours. Chest x-ray, no acute cardiopulmonary process. ASSESSMENT: 1. Benign prostatic hypertrophy with recent intervention. 2. Fever, which could be related to the August event or unrelated process with mild neutrophilia, which seems to be improving now. 3. Some abnormalities in lung examination, particularly in the right side, which have not been demonstrated on chest x-ray. DISCUSSION: Differential diagnosis includes transient bacteremia from the procedure versus thromboembolism. Biliary tract process is another consideration, although his imaging studies carried out in August did not demonstrate any such problem. We will order a CT angio and monitor the cultures. Once negative, discontinue antimicrobial therapy. Otherwise, we will have to manage accordingly. He does have drops in his O2 sats during both admissions, and in view of the abnormalities and chest x-ray, I think it is important to rule out thromboembolism, which can manifest sometimes as fever of unknown origin. Job ID: [id number]
[2019-11-19 12:12] LABS: HIV (1/2) Antibody/Antigen Non-Reactive (NonReactive); HIV 1/2 INDEX 0.15 S/CO (<1.00); Hep C IgG Ab Non-Reactive (NonReactive); Hep C Index 0.08 S/CO (0-0.79); Syphilis Antibody Nonreactive (Nonreactive); Syphilis Antibody Index 0.05 S/CO (<1.00 Non-Reactive)
--- NOTE | 2019-11-19 12:40 | CT ---
CT ANGIOGRAM THORAX WITH IV CONTRAST AND 3D RECONSTRUCTIONS: HISTORY: Fever, hypoxemia, abnormal lung exam. History of bilateral hernia surgery. COMPARISON: None. FINDINGS: No filling defects are seen in the pulmonary arteries, but there is limited evaluation of the segment al and subsegmental pulmonary arteries right lower lobe due to prominent respiratory motion. Vascular calcifications are seen in the thoracic aorta. The thoracic aorta is normal in caliber with out evidence of an aortic dissection. Trace bilateral pleural effusions and associated atelectasis are present. Minimal reticulonodular densities are seen in the inferior and posterior aspects of the right upper l obe which may be related to infectious or inflammatory process. There is no consolidation or pleural fluid identified. Atelectasis is seen in the lower lumbar spine laterally. No enlarged mediastinal or hilar lymph nodes are seen by CT size criteria. The visualized upper abdomen demonstrates a grossly normal appearance for phase of imaging with promi nently noncontrasted appearance of the parenchymal organs in the visualized upper abdomen. Degenerative changes are seen in the spine. IMPRESSION: 1. Limited evaluation of the pulmonary arteries in the right lower lobe due to prominent respiratory motion artifact, but there is otherwise no evidence of a pulmonary embolus. 2. Minimal reticulonodular densities right upper lobe which may be related to infectious or inflamma tory process. 3. Trace bilateral pleural effusions. 4. Tiny hiatal hernia. POS: [facility]
[2019-11-19 16:25] VITALS: BP 161/76
--- NOTE | 2019-11-20 02:40 | DIS ---
DATE OF ADMISSION: 11/17/2019 DATE OF DISCHARGE: 11/19/2019 DISPOSITION: To home, with excellent self-care, family assist. DISCHARGE MEDICATIONS: May resume his home medications, continue to hold his aspirin. Levaquin 500 mg 1 p.o. daily x7 days, Azo p.r.n. over the counter. CONDITION: Stable. FOLLOWUP: followup appointment November 22 at 8 a.m. for Jackman catheter removal. INPATIENT CONSULTATION: 1. Hospitalist. 2. Infectious Disease, Dr. Smart. BRIEF HOSPITAL COURSE: Mr. Morales is a pleasant 74-year-old male with history of BPH symptoms. He underwent UroLift surgery, which was uneventful, meatal urethral stricture dilatation, has an indwelling Jackman catheter placement. The patient was scheduled for outpatient surgery and planning discharge, however, upon assessing the patient in Day Stay for discharge, he developed fever and rigors. Fever of 102. He had similar events of fever and rigors of unclear etiology about 3 months ago after injection of allergy medications. Workup negative at that time with lumbar puncture and brain, chest x-ray negative. He was provided meropenem, vancomycin due to fever, blood culture was obtained, urine culture negative. His fever, rigors resolved spontaneously. Infectious Disease consult was obtained as his culture finalized negative. He was seen by Dr. Smart in which CT angio of the chest was advised to rule out occult pulmonary embolus. CT of the chest November 19 demonstrates no evidence of pulmonary embolus, possible right upper lobe reticular density related to infection or inflammatory process, however, grossly unremarkable. He denies symptoms of pneumonia. His vital signs have been stable with no fever. He does have symptoms of bradycardia syndrome, which he has been asymptomatic followed by Dr. Bentley. Blood culture negative. Urine culture negative. DISPOSITION: Stable. Job ID: [id number]
== END 2019-11-19 16:41 | disposition home or self-care (01) | DRG 864 ==
LOC: SDC 05:51 → SURG B 13:38
PROVIDERS: ADMIT Urology; ATTEND Urology
PROC: 0T7D8DZ Dilation of Urethra with Intraluminal Device, Via Natural or Artificial Opening Endoscopic (ICD-10-PCS; principal; 2019-11-17)
DX: R50.82 Postprocedural fever (principal); I10 Essential (primary) hypertension; N35.911 Unspecified urethral stricture, male, meatal; N40.1 Benign prostatic hyperplasia with lower urinary tract symptoms; E78.5 Hyperlipidemia, unspecified; K21.9 Gastro-esophageal reflux disease without esophagitis; Z98.890 Other specified postprocedural states
CPT/HCPCS: 36415; 71046; 71275; 80048; 80053; 80076; 80202; 83735; 84443; 85025; 86780; 86803; 87040; 87086; 87389; C1889; J1956; J2001; J2175; J2185; J2405; J2704; J3010; J3370; J3490; J7050; S0028

== ENCOUNTER 2020-06-01 15:03 | Outpatient (CLI) | payer MEDICARE ==
--- NOTE | 2020-06-01 16:01 | MRI ---
MR OF THE LEFT KNEE WITHOUT CONTRAST: 06/01/20 INDICATION: Acute meniscal tear of the left knee. COMPARISON: None. FINDINGS: There is a horizontally oriented tear with an oblique component involving the anterior body of the me dial meniscus. There is displacement flap in the inferior medial gutter measuring 5 mm on image 16 of series 7, projecting off the anterior body. The horizontal tear component does extend into the poste rior body and posterior junction of the medial meniscus. There is some degenerative intrasubstance si gnal near the posterior root of the medial meniscus. There is partial medial extrusion. The lateral m eniscus is intact. There are small marginal osteophytes affecting the major compartments of the left knee. There are are as of focal full thickness fissuring involving the lateral patellar facet as well as median patellar ridge. There is diffuse moderate chondrosis along the medial femorotibial joint compartment. The ACL, PCL, MCL and LCLC are intact. The extensor mechanism is intact. IMPRESSION: 1. Mild osteoarthrosis of the left knee. 2. Medial meniscal tear. POS: [facility]
== END 2020-06-01 15:04 | disposition home or self-care (01) ==
LOC: BICMRI 15:03
PROVIDERS: ATTEND Orthopaedic Surgery
DX: S83.241A Other tear of medial meniscus, current injury, right knee, initial encounter (principal); M17.12 Unilateral primary osteoarthritis, left knee

== ENCOUNTER 2020-06-12 07:35 | Outpatient (CLI) | payer MEDICARE, OTHER ==
[2020-06-12 14:00] LABS: #Basophils 0.1 thou/uL (0.0-0.2); #Eosinphils 0.4 thou/uL (0.0-0.7); #Lymphocytes 1.8 thou/uL (1.20-3.40); #Monocytes 0.6 thou/uL (0.11-0.59); #Neutrophils 4.3 thou/uL (1.40-6.50); %Basophils 0.9 % (0.0-1.0); %Eosinophils 5.6 % (0.0-10.0); %Lymphocytes 25.3 % (21.0-51.0); %Monocytes 8.1 % (0.0-10.0); %Neutrophils 60.1 % (42.0-75.0); Hemoglobin 14.9 g/dL (14.0-18.0); Mean Corpuscular HGB CONC 33.1 g/dL (32.0-36.0); Mean Corpuscular Hemoglobin 29.1 pg (27.0-31.0); Mean Corpuscular Volume 87.9 fL (78.0-98.0); Mean Platelet Volume 7.4 fL (7.4-10.4); Platelet Count 239 thou/uL (130-400); RBC Distribution Width 12.3 % (11.5-14.5); Red Blood Cell (RBC) Count 5.14 mill/uL (4.70-6.10); White Blood Cell (WBC) Count 7.2 thou/uL (4.8-10.8)
[2020-06-12 14:34] LABS: Anion Gap 16 mmol/L (10-20); BUN (Urea Nitrogen) 16 mg/dL (8.4-25.7); Calc. Creatinine Clearance 0 mL/min (70-130); Calcium 9.8 mg/dL (7.8-10.44); Carbon Dioxide 24 mmol/L (23-31); Chloride 104 mmol/L (98-107); Estimated GFR-MDRD 76; Glucose 93 mg/dL (83-110); Potassium 4.3 mmol/L (3.5-5.1); Sodium 140 mmol/L (136-145)
[2020-06-13 14:15] LABS: SARS-CoV-2 MS2 Positive; SARS-CoV-2 N Gene Negative; SARS-CoV-2 S Gene Negative; SARS-CoV-2 by NAA Not Detected (NotDetected); SARS-CoV-2 orf1ab Negative
--- NOTE | 2020-06-13 15:38 | EKG ---
Test Reason : Blood Pressure : / mmHG Vent. Rate : 044 BPM Atrial Rate : 044 BPM P-R Int : 130 ms QRS Dur : 092 ms QT Int : 444 ms P-R-T Axes : 046 022 035 degrees QTc Int : 379 ms Marked sinus bradycardia Abnormal ECG Confirmed by NICKOLAS PINO ([id number]) on 06/13/2020 3:37:53 PM Referred By: OSCAR Confirmed By:NICKOLAS PINO
== END 2020-06-12 07:36 | disposition home or self-care (01) ==
LOC: LABBT 07:35
PROVIDERS: ATTEND Orthopaedic Surgery
DX: Z01.818 Encounter for other preprocedural examination (principal); Z11.59 Encounter for screening for other viral diseases; S83.242A Other tear of medial meniscus, current injury, left knee, initial encounter
CPT/HCPCS: 80048; 85025; 93005; U0003; 87635; 93010

== ENCOUNTER 2020-06-15 07:26 | Day surgery (SDC) | payer MEDICARE ==
[2020-06-12 11:10] VITALS: BMI 27.4
[2020-06-15] MEDS ORDERED: PROPOFOL 20 ML ONE (08:05)
[2020-06-15] MEDS ORDERED: Fentanyl 100 MCG/2 ML VIAL ONE (09:29)
[2020-06-15] MEDS ORDERED: PROPOFOL 200 MG/20 ML VIAL ONE (10:54)
[2020-06-15] MEDS ORDERED: Bupivacaine HCl 0.5%/Epinephrine 1:200,000/PF 30 ml Vial ONE (10:54)
[2020-06-15] MEDS ORDERED: Dexamethasone 20 MG/5 ML VIAL ONE (10:54)
[2020-06-15] MEDS ORDERED: Ondansetron PF 4 MG/2 ML Vial ONE (10:54)
[2020-06-15] MEDS ORDERED: Lidocaine 1% PF 5 ML VIAL ONE (10:54)
[2020-06-15] MEDS ORDERED: Lidocaine 2% w/Epinephrine 1:200K 20 ML VIAL ONE (10:54)
[2020-06-15] MEDS ORDERED: Glycopyrrolate 0.2 MG/ML 5 ML SYRINGE ONE (10:54)
--- NOTE | 2020-06-15 15:11 | OP ---
DATE OF PROCEDURE: 06/15/2020 TITLE OF PROCEDURE: Left partial medial meniscectomy. PREOPERATIVE DIAGNOSIS: Medial meniscus tear, left knee. POSTOPERATIVE DIAGNOSIS: Medial meniscus tear, left knee. ANESTHESIA: General. BLOOD LOSS: Minimal. SPECIMEN: None. DRAINS: None. COMPLICATION: None. DESCRIPTION OF PROCEDURE: The patient was taken to operating room where general anesthesia was induced. Left leg was prepped and draped in sterile fashion. Findings at surgery, no significant arthritis, posterior horn medial meniscus tear. I debrided the medial meniscus with basket forceps, smoothed using a 4.0 full-radius resector and probing did confirm the meniscus stable. There was very little meniscus tissue left posteriorly, but I did leave the anterior horn behind. The knee was then drained. Sterile dressings applied. Job ID: [id number]
== END 2020-06-15 12:30 | disposition home or self-care (01) ==
LOC: SDC 07:26
PROVIDERS: ATTEND Orthopaedic Surgery
PROC: 0SBD4ZZ Excision of Left Knee Joint, Percutaneous Endoscopic Approach (ICD-10-PCS; principal; 2020-06-15)
DX: S83.242A Other tear of medial meniscus, current injury, left knee, initial encounter (principal); M17.12 Unilateral primary osteoarthritis, left knee; E78.5 Hyperlipidemia, unspecified; I10 Essential (primary) hypertension; K21.9 Gastro-esophageal reflux disease without esophagitis; N52.9 Male erectile dysfunction, unspecified; Z79.82 Long term (current) use of aspirin; Z79.899 Other long term (current) drug therapy
CPT/HCPCS: J0670; J0690; J1100; J2405; J2704; J3010

== ENCOUNTER 2020-08-13 19:11 | Inpatient (IN) | payer MEDICARE ==
[2020-08-13 19:50] LABS: #Lymphocytes 1.5 thou/uL (1.20-3.40); #Monocytes 1.5 thou/uL (0.11-0.59); #Neutrophils 9.7 thou/uL (1.40-6.50); %Basophils 0.3 % (0.0-1.0); %Eosinophils 0.3 % (0.0-10.0); %Lymphocytes 11.7 % (21.0-51.0); %Monocytes 11.6 % (0.0-10.0); %Neutrophils 76.2 % (42.0-75.0); Hemoglobin 15.1 g/dL (14.0-18.0); Mean Corpuscular HGB CONC 33.5 g/dL (32.0-36.0); Mean Corpuscular Hemoglobin 28.9 pg (27.0-31.0); Mean Corpuscular Volume 86.1 fL (78.0-98.0); Mean Platelet Volume 7.3 fL (7.4-10.4); Platelet Count 208 thou/uL (130-400); Red Blood Cell (RBC) Count 5.24 mill/uL (4.70-6.10); White Blood Cell (WBC) Count 12.7 thou/uL (4.8-10.8)
[2020-08-13] MEDS ORDERED: Acetaminophen 500 MG TAB ONE (20:14)
[2020-08-13] MEDS ORDERED: Clindamycin/D5W 900 mg/50 ml Premix Bag ONE (20:14)
[2020-08-13 20:15] LABS: ALT (SGPT) 19 U/L (8-55); AST (SGOT) 22 U/L (5-34); Albumin 4.3 g/dL (3.4-4.8); Alkaline Phosphatase 98 U/L (40-110); Anion Gap 14 mmol/L (10-20); BUN (Urea Nitrogen) 14 mg/dL (8.4-25.7); Bilirubin, Total 1.4 mg/dL (0.2-1.2); Calc. Creatinine Clearance 0 mL/min (70-130); Calcium 9.3 mg/dL (7.8-10.44); Carbon Dioxide 23 mmol/L (23-31); Chloride 100 mmol/L (98-107); Estimated GFR-MDRD 77; Globulin 3.4 g/dL (2.4-3.5); Glucose 122 mg/dL (83-110); Potassium 3.7 mmol/L (3.5-5.1); Protein, Total 7.7 g/dL (5.8-8.1); Sodium 133 mmol/L (136-145)
--- NOTE | 2020-08-13 20:44 | RAD ---
CHEST ONE VIEW: History: Pacemaker placed four days ago. Chest pain when taking a deep breath. FINDINGS: Heart size appears borderline. A pacemaker is in place. I do not appreciate any signs of a pneumothor ax. Slight increased density in the left midlung field is felt to be technique related, probably rela markus to overlying soft tissue. Some minimal infiltrative change is considered less likely possibility. IMPRESSION: 1. No evidence of pneumothorax. Slight increased density over the left chest as compared to the right is felt to be related to slight rotation and soft tissue change, less likely infiltrative santos joshua. POS: [facility] [place]
--- NOTE | 2020-08-13 21:30 | RAD ---
LEFT HAND THREE VIEWS: History: Hand pain FINDINGS: There are mild degenerative changes at the radial carpal, intercarpal and first carpal metacarpal laurie nts. Mild degenerative changes at the MCP joints of the first, second, and third fingers. IP joints unremarkable with mild degenerative changes at the IP joint of the thumb and the DIP joints of the second and third digits. No fracture or acute abnormality. IMPRESSION: There are degenerative changes as described. POS: [facility]
[2020-08-13] MEDS ORDERED: Lidocaine 1% (PF) 30 ML VIAL ONE (22:26)
[2020-08-13] MEDS ORDERED: Aspirin Chewable 81 MG TAB ONE (22:38)
[2020-08-13] MEDS ORDERED: Aspirin 325 MG TAB ONE (22:38)
[2020-08-13] MEDS ORDERED: Vancomycin 1.5 GRAM/300 ML BAG 1.5 GM in Premix Bag 1 BAG IVPB SCH (22:45)
[2020-08-13 23:24] LABS: BF Color Pink; Body Fluid Source Synovial Fluid; Clarity Cloudy/Turbid (Clear); Tube # EDTA
[2020-08-13 23:27] LABS: Bilirubin Negative (Negative); Blood, Urine Negative (Negative); Clarity Clear (Clear); Glucose, Urine (Dipstick) Normal (Negative); Ketone, Urine Negative (Negative); Leukocyte Negative Leu/uL (Negative); Nitrite Negative (Negative); Protein, Urine (Dipstick) Negative (Neg-Trace); Specific Gravity, Urine 1.013 (1.002-1.036); Urobilinogen Normal mg/dL (Less than 2); pH, Urine 5.5 (5.0-9.0)
[2020-08-13 23:38] LABS: BF RBC Count - Manual 20000 /cu.mm; BF WBC/Nonhematics Ct.-Manual 55400 /cu.mm
[2020-08-13 23:43] LABS: BF Segmented Neutrophils 86 %; Cell Count Non Hematic 7 %; Lymphocytes 7 %
[2020-08-14] MEDS ORDERED: HYDROcodone/Acetaminophen 5/325 mg Tablet PO PRN (00:06)
[2020-08-14] MEDS ORDERED: Morphine 2 MG/ML VIAL SLOW IVP PRN (00:06)
[2020-08-14 00:13] LABS: Troponin I Less than 0.010 ng/mL (< 0.028)
--- NOTE | 2020-08-14 00:14 | PDOC.HHP ---
Hospitalist HPI - History of Present Illness Pain and swelling in the left wrist History of Present Illness: 74-year-old gentleman with a history of tachybradycardia syndrome had a pacemaker placed about 4 days ago. She started experiencing pain in the fourth and fifth digit left hand followed by painful swelling of the wrist. Patient also reported intermittent fever since yesterday. A fever of 100.8 was recorded in the emergency department. Patient has leukocytosis. His heart rate is greater than 90 and therefore meets criteria for sepsis. X-ray of the hand was unremarkable. Chest x-ray showed pacemaker in place, no evidence of pneumothorax, slight increase in density over the left chest which could be related to rotation or soft tissue change. Patient is admitted for further management of sepsis and possible septic arthritis. Hospitalist ROS - Review of Systems Other: Except as documented, all other systems reviewed and negative. - Medication Medications: Medication Instructions Recorded Confirmed Type Aspirin [Aspirin EC] 81 mg PO DAILY 08/25/19 08/14/20 History Atorvastatin Calcium 20 mg PO DAILY 08/25/19 08/14/20 History Lisinopril/Hydrochlorothiazide 1 tablet PO DAILY 08/25/19 08/14/20 History [Lisinopril-Hctz 20-25 mg Tab] Omeprazole 20 mg PO DAILY 08/25/19 08/14/20 History Hospitalist History - Past Medical History Other Medical History: Hypertension, hyperlipidemia, esophageal reflux disease, erectile dysfunction, benign positional vertigo, bradycardia tachycardia syndrome status post pacemaker, BPH. - Past Surgical History Other Surgical History: Knee surgery, shoulder surgery, right arm laceration repair, colonoscopy, bilateral inguinal hernia repair with mesh, cystoscopy with bladder wash, and UroLift. - Family History Other Family History: Children with diabetes. - Social History Smoking Status: Never smoker Alcohol: reports: None Drugs: reports: none Living Situation: With Family - Exam General Appearance: NAD, awake alert Eye: PERRL, anicteric sclera ENT: normocephalic atraumatic, no oropharyngeal lesions, moist mucosa Neck: supple, symmetric, no thyromegaly Heart: RRR, no murmur Respiratory: CTAB, no wheezes, no rales Respiratory - other findings: L chest wall healing pacemaker surgical wound. No discharge or erythema Gastrointestinal: soft, non-tender, normal bowel sounds Extremities: no cyanosis Extremities - other findings: Dorsum of left wrist slightly swollen with mild erythema. Skin: normal turgor Skin - other findings: Erythema of the dorsum of left wrist Neurological: cranial nerve grossly intact, no weakness, no focal deficits Musculoskeletal: normal tone, normal strength Psychiatric: normal affect, normal behavior, A&O x 3 Hospitalist Results - Labs Result Diagrams: 08/13/20 19:35 08/13/20 19:35 Lab results: WBC 12.7 thou/uL (4.8-10.8) H 08/13/20 19:35 Hgb 15.1 g/dL (14.0-18.0) 08/13/20 19:35 Hct 45.2 % (42.0-52.0) 08/13/20 19:35 MCV 86.1 fL (78.0-98.0) 08/13/20 19:35 Plt Count 208 thou/uL (130-400) 08/13/20 19:35 Neutrophils % 76.2 % (42.0-75.0) H 08/13/20 19:35 Sodium 133 mmol/L (136-145) L 08/13/20 19:35 Potassium 3.7 mmol/L (3.5-5.1) 08/13/20 19:35 Chloride 100 mmol/L (98-107) 08/13/20 19:35 Carbon Dioxide 23 mmol/L (23-31) 08/13/20 19:35 BUN 14 mg/dL (8.4-25.7) 08/13/20 19:35 Creatinine 0.96 mg/dL (0.7-1.3) 08/13/20 19:35 Glucose 122 mg/dL (83-110) H 08/13/20 19:35 Lactic Acid 1.0 mmol/L (0.5-2.2) 08/13/20 19:35 Calcium 9.3 mg/dL (7.8-10.44) 08/13/20 19:35 Total Bilirubin 1.4 mg/dL (0.2-1.2) H 08/13/20 19:35 AST 22 U/L (5-34) 08/13/20 19:35 ALT 19 U/L (8-55) 08/13/20 19:35 Alkaline Phosphatase 98 U/L (40-110) 08/13/20 19:35 Troponin I Less than 0.010 ng/mL (< 0.028) 08/13/20 19:35 C-Reactive Protein 10.25 mg/dL (= or < 0.5) H 08/13/20 19:35 Serum Total Protein 7.7 g/dL (5.8-8.1) 08/13/20 19:35 Albumin 4.3 g/dL (3.4-4.8) 08/13/20 19:35 Urine Ketones Negative mg/dL (Negative) 08/13/20 23:15 Urine Blood Negative (Negative) 08/13/20 23:15 Urine Nitrite Negative (Negative) 08/13/20 23:15 Ur Leukocyte Esterase Negative Jac/uL (Negative) 08/13/20 23:15 Hospitalist H&P A/P - Problem (1) Sepsis Code(s): A41.9 - SEPSIS, UNSPECIFIED ORGANISM Status: Acute (2) Septic arthritis of wrist, left Code(s): M00.9 - PYOGENIC ARTHRITIS, UNSPECIFIED Status: Acute (3) Cellulitis of hand Code(s): L03.119 - CELLULITIS OF UNSPECIFIED PART OF LIMB Status: Acute (4) Status post cardiac pacemaker procedure Status: Acute - Plan Plan: Admit patient to the medical floor. There was a concern for sepsis which may include infection of the pacemaker wound and seeding of the left wrist. Will cover with broad-spectrum antibiotics-IV cefepime and vancomycin. Left wrist joint was aspirated in the ED. Follow joint fluid analysis and culture results. Follow blood cultures. Continue to monitor pacemaker surgical wound for signs of infection. Orthopedic consult pending joint fluid analysis result.
--- NOTE | 2020-08-14 00:25 | PDOC.FMACP ---
Advance Care Planning - Problem (1) Sepsis Status: Acute Code(s): A41.9 - SEPSIS, UNSPECIFIED ORGANISM (2) Septic arthritis of wrist, left Status: Acute Code(s): M00.9 - PYOGENIC ARTHRITIS, UNSPECIFIED (3) Cellulitis of hand Status: Acute Code(s): L03.119 - CELLULITIS OF UNSPECIFIED PART OF LIMB (4) Status post cardiac pacemaker procedure Status: Acute - Note Summary: Advanced Care Planning was discussed. The diagnosis, prognosis and goals of care were discussed. Appropriate forms and documentation to accomplish the goals of care were discussed. All questions were answered. The Palliative Care Team will be engaged to assist with completion of any outstanding forms that are needed. Patient wishes to remain full code. Patient spouse Casandra Morales is the surrogate decision-maker. Time Spent (mins): 18
[2020-08-14 01:22] VITALS: BMI 26.4
[2020-08-14] MEDS: Cefepime 2 GM in Sodium Chloride 0.9% 100 ML IVPB SCH ×2 (02:03→12:02)
[2020-08-14 02:39] LABS: Troponin I Less than 0.010 ng/mL (< 0.028)
[2020-08-14] MEDS: Enoxaparin Sodium 40 MG/0.4 ML SYRINGE SC SCH (07:59)
[2020-08-14] MEDS ORDERED: PROPOFOL 200 MG/20 ML VIAL ONE (10:56)
[2020-08-14] MEDS ORDERED: Ondansetron PF 4 MG/2 ML Vial ONE (10:56)
[2020-08-14] MEDS ORDERED: Lidocaine 1% PF 5 ML VIAL ONE (10:56)
[2020-08-14] MEDS ORDERED: Dexamethasone 20 MG/5 ML VIAL ONE (10:56)
[2020-08-14] MEDS ORDERED: Succinylcholine Chloride 20 MG/ML 10 ml SYRINGE FS ONE (10:56)
[2020-08-14] MEDS ORDERED: EPHEDRINE 25 MG/5 ML SYRINGE ONE (10:56)
[2020-08-14] MEDS: Vancomycin 1 GM in Premix Bag 1 BAG IVPB SCH ×2 (11:35→22:07)
[2020-08-14] MEDS: Calcium Carbonate 500 MG ChewTAB PO PRN (12:10)
[2020-08-14] MEDS ORDERED: Sodium Chloride 0.9% 10 ML ONE (15:43)
[2020-08-14] MEDS ORDERED: Bacitracin Zinc Ointment 30 gm TUBE ONE (15:43)
[2020-08-14] MEDS ORDERED: Thrombin 5000 UNITS/5 ML VIAL ONE (15:43)
[2020-08-14] MEDS ORDERED: Bupivacaine PF 0.5% 30 ML VIAL ONE (15:43)
[2020-08-14] MEDS ORDERED: EPINEPHrine 1 MG/ML AMP ONE (15:43)
[2020-08-14] MEDS ORDERED: Fentanyl 100 MCG/2 ML VIAL ONE ×2 (15:47→17:06)
[2020-08-14] MEDS ORDERED: Lidocaine 2% Jelly 5 ML TUBE ONE (16:00)
[2020-08-14] MEDS ORDERED: Promethazine HCl 25 MG/ML VIAL IM PRN (18:30)
[2020-08-14] MEDS ORDERED: Promethazine HCl 25 MG/ML VIAL SLOW IVP PRN (18:30)
[2020-08-14] MEDS ORDERED: Ondansetron HCl/PF 4 MG/2 ML Vial IVP PRN (18:30)
[2020-08-14 18:50] LABS: SARS-CoV-2 MS2 Positive; SARS-CoV-2 N Gene Negative; SARS-CoV-2 S Gene Negative; SARS-CoV-2 by NAA Not Detected (NotDetected); SARS-CoV-2 orf1ab Negative
[2020-08-14] MEDS ORDERED: Morphine 4 MG/ML VIAL SLOW IVP PRN (20:04)
[2020-08-14] MEDS ORDERED: FLU VACC QS2020-21(65YR UP)/PF 240 MCG/0.7 ML SYRINGE IM ONE (21:00)
[2020-08-14] MEDS: Colchicine 0.6 MG TAB PO SCH (22:06)
[2020-08-15] MEDS: Cefepime 2 GM in Sodium Chloride 0.9% 100 ML IVPB SCH ×2 (00:10→11:39)
--- NOTE | 2020-08-15 01:10 | OP ---
DATE OF PROCEDURE: 08/14/2020 PREOPERATIVE DIAGNOSES: Left wrist infectious arthritis. POSTOPERATIVE DIAGNOSIS: Left wrist infectious arthritis with overlying probable acute gouty arthropathy. FINDINGS: Crystalline structures throughout the joint surface seen and in the synovium to include a portion of synovium that was erythematous, consistent with gout, possibly chronic with new onset of infectious arthropathy. PROCEDURE PERFORMED: 1. Left wrist arthroscopic synovectomy. 2. Left wrist arthroscopic lavage for drainage of infection. 3. Synovial biopsies to rule out gout. SPECIMENS SENT: Synovial biopsies to rule out gout, joint fluid to rule out gout, and cultures. ESTIMATED BLOOD LOSS: 5 mL. TOURNIQUET TIME: None. INDICATION: Patient reports acute onset of wrist pain over the last three days leading to admission to the hospital approximately 24 hours prior to my evaluation. He clearly had fusion without injury. No radiographic fractures seen, so felt he might be having septic arthritis, so we scheduled for surgery. DESCRIPTION OF PROCEDURE: Patient was brought to the operating room, after a time-out was done appropriately, prepped and draped. We identified the left side as the problematic side. This matched his records. He then had his limb prepped and draped, wrist placed in the standard overhead in-line traction for wrist arthroscopy. The 3, 4 portals established and the joint was inflated with 10 mL of 0.5% normal saline. We then established the 6U and 6R portals and began a panoramic view of the wrist, but at first we could not see very well because of the markedly thick and often erythematous synovitis seen. We then performed an arthroscopic synovectomy enough to visualize and removed the loose chondral fracture as well. Triangular fibrocartilage was intact as was the ulnar carpal ligaments. There was no scapholunate, no triquetrum gap formation. There was a moderate amount of grade 1 to 2 chondromalacia seen on the surface. Finally, once debridement done in the synovium that was erythematous, especially in the palmar deep synovium, there was marked concentration of what appeared to be gouty crystals and if not some type of other inflammatory disease, so we took a synovial biopsy using the new [employer] small joint arthroscopic instruments set as well as the shaver. Once we finished shaving the synovium, we continued to shave the low level obviously we visualized alternating between the 3, 4, and the 6R portal. After this was accomplished, the patient then left the operating room with the portals still open, the specimen sent for fluid to rule out gout, tissue to rule out gout, and culture. A bulky dressing was applied with a drain in the 3, 4 portal which was established for panoramic view of the wrist. Job ID: [id number]
[2020-08-15] MEDS: Colchicine 0.6 MG TAB PO SCH ×2 (04:51→11:39)
[2020-08-15] MEDS: Calcium Carbonate 500 MG ChewTAB PO PRN (05:02)
[2020-08-15] MEDS: Enoxaparin Sodium 40 MG/0.4 ML SYRINGE SC SCH (08:27)
[2020-08-15] MEDS ORDERED: Lisinopril/Hydrochlorothiazide 20/25 mg Tablet PO SCH (10:30)
[2020-08-15] MEDS ORDERED: Aspirin 81 mg Enteric Coated Tablet PO SCH (10:30)
[2020-08-15] MEDS ORDERED: Atorvastatin Calcium 20 MG TAB PO SCH (10:30)
[2020-08-15] MEDS ORDERED: Vancomycin 1.5 GRAM/300 ML BAG 1.5 GM in Premix Bag 1 BAG IVPB SCH (11:00)
--- NOTE | 2020-08-15 14:22 | PDOC.HOSPP ---
- Subjective Encounter Date: 08/15/20 Encounter Time: 10:00 Subjective: Patient seen for follow-up regarding septic arthritis. Denies fevers or chills. - Objective Vital Signs & Weight: Vital Signs (12 hours) Temp Pulse Resp BP Pulse Ox 08/15/20 11:44 98.4 F 61 17 124/68 96 08/15/20 07:12 98.4 F 72 15 155/70 H 96 08/15/20 04:00 97.6 F 60 12 116/69 94 L Weight Weight 167 lb I&O: 08/14/20 08/15/20 08/16/20 06:59 06:59 06:59 Intake Total 200 660 Output Total 0 Balance 200 660 Result Diagrams: 08/13/20 19:35 08/13/20 19:35 Additional Labs: I reviewed patient's labs and MAR EKG Reviewed by me: Yes (Telemetry: A-Paced) Hospitalist ROS - Review of Systems Cardiovascular: denies: chest pain, palpitations, orthopnea, paroxysmal noc. dyspnea, edema, light headedness Gastrointestinal: denies: nausea, vomiting, abdominal pain, diarrhea, cons tipation, melena, hematochezia Musculoskeletal: reports: hand pain - Medication Medications: Active Medications Generic Name Dose Route Start Last Admin Trade Name Freq PRN Reason Stop Dose Admin Calcium Carbonate 1,000 mg 08/14/20 12:02 08/15/20 05:02 Calcium Carbonate 500 Mg Chewtab PO 1,000 mg Q4H PRN Administration Heartburn or Indigestion Enoxaparin Sodium 40 mg 08/14/20 09:00 08/15/20 08:27 Enoxaparin Sodium 40 Mg/0.4 Ml Syringe SC 40 mg 0900 ANTONIA Administration Cefepime HCl 2 gm/ Sodium 100 mls @ 200 mls/hr 08/14/20 01:00 08/15/20 11:39 Chloride IVPB 100 mls 0100,1300 ANTONIA Administration Vancomycin HCl 1.5 gm/ Device 300 mls @ 200 mls/hr 08/15/20 11:00 08/15/20 12:12 IVPB 300 mls 1100,2300 ANTONIA Administration Morphine Sulfate 4 mg 08/14/20 20:04 08/15/20 11:58 Morphine 4 Mg/Ml Vial SLOW IVP 4 mg Q4H PRN Administration Pain - Exam General Appearance: awake alert Eye: anicteric sclera ENT: moist mucosa Neck: supple Heart: RRR Respiratory: CTAB Gastrointestinal: soft Skin: normal turgor Skin - other findings: Left hand dressing Psychiatric: normal affect, normal behavior Hosp A/P (1) Sepsis Code(s): A41.9 - SEPSIS, UNSPECIFIED ORGANISM Status: Acute (2) Septic arthritis of wrist, left Code(s): M00.9 - PYOGENIC ARTHRITIS, UNSPECIFIED Status: Acute (3) BPH (benign prostatic hyperplasia) Code(s): N40.0 - BENIGN PROSTATIC HYPERPLASIA WITHOUT LOWER URINRY TRACT SYMP Status: Chronic (4) HLD (hyperlipidemia) Code(s): E78.5 - HYPERLIPIDEMIA, UNSPECIFIED Status: Chronic (5) HTN (hypertension) Code(s): I10 - ESSENTIAL (PRIMARY) HYPERTENSION Status: Chronic - Plan Continue IV vancomycin and cefepime. Consult ID service for opinion and help with management, patient recently had pacemaker placed. Status post incision and drainage by hand surgeon, follow cultures. Resume home medications.
--- NOTE | 2020-08-15 23:44 | CON ---
DATE OF CONSULTATION: 08/15/2020 CONSULT REQUEST: Monoarticular inflammatory process. HISTORY OF PRESENT ILLNESS: The 74-year-old whom I had seen in the past at the beginning of this year when he presented with a history of rhinitis, hyperlipidemia, hypertension, and then developed a reaction after getting some allergy shots. He had negative workup done, and we felt that the allergy injections might have been responsible for the patient's reaction. The patient this time comes to the hospital with progressive worsening pain in the 4th and 5th digits with swelling and warmth. He had recently had a pacemaker insertion on August 10, and knee surgeries. On arrival, BP was 160/80, temperature 100.8, and the exam showed abnormal swelling, tenderness, and erythema of left hand and wrist. Initial findings included white cell count 12.7, hemoglobin 15, platelets 208, 76% neutrophils. Creatinine 0.96, bilirubin 1.4, transaminases normal, alkaline phosphatase 98. CRP was 10.25 and albumin 4.3. Urinalysis was normal, and synovial fluid obtained showed 55,000 WBCs with 86% neutrophils. There were pseudogout crystals identified in 2 different samples. The patient had a sample submitted for microbiology with no organisms seen. The cultures are pending. Currently, he is having mild pain at his left wrist and hand. No headaches, visual symptoms, sore throat, odynophagia, or dysphagia. No cough, sputum production, or chest pain. No abdominal pain or diarrhea. No genitourinary symptoms. No other joint symptoms at the moment. No neurological symptoms. PAST MEDICAL HISTORY: Includes rhinitis, BPH, hyperlipidemia, and reaction he had to one of the allergy medications. ALLERGIES: NONE. MEDICATIONS: 1. Lipitor. 2. Tums. 3. Cefepime. 4. Colchicine, started recently. 5. Pantoprazole. 6. Vancomycin. PHYSICAL EXAMINATION: VITAL SIGNS: He has been afebrile since admission, blood pressure 130/60, heart rate 63, respiratory rate 14, O2 saturation 94. SKIN: Shows left surgical site. LUNGS: Clear. CARDIAC: S1, S2. Regular rate. HEENT: Unremarkable. ABDOMEN: Soft, not distended or tender. EXTREMITIES: No other joint inflammatory process noted. Pulses 1+ in dorsalis pedis. NEURO: Nonfocal. LABORATORY DATA: Lactic acid 0.8. Troponin is normal. IMAGING DATA: Hand x-ray with degenerative changes. 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 Dr. Cedeño did I and D of the site, and the operative note reviewed demonstrates that there was evidence of chondromalacia and crystals were noted in the area. Biopsy was done. Pathology is pending. The crystal analysis in the fluid was identified as pseudogout crystals. It is very likely that this gentleman has pseudogout rather than infectious arthropathy. We will discontinue antimicrobial therapy, and monitor cultures to the end, and continue treatment with anti-inflammatories, particularly colchicine. Job ID: [id number] [facility]
[2020-08-16] MEDS: Colchicine 0.6 MG TAB PO SCH ×3 (00:07→23:38)
[2020-08-16] MEDS: HYDROcodone/Acetaminophen 7.5/325 mg Tablet PO PRN ×2 (08:41→19:51)
[2020-08-16] MEDS: Aspirin 81 mg Enteric Coated Tablet PO SCH (08:41)
[2020-08-16] MEDS: Lisinopril/Hydrochlorothiazide 20/25 mg Tablet PO SCH (08:42)
[2020-08-16] MEDS: Enoxaparin Sodium 40 MG/0.4 ML SYRINGE SC SCH (08:42)
[2020-08-16] MEDS: Atorvastatin Calcium 20 MG TAB PO SCH (08:43)
--- NOTE | 2020-08-16 17:57 | PDOC.HOSPP ---
- Subjective Encounter Date: 08/16/20 Encounter Time: 12:00 Subjective: Patient seen for follow-up regarding pseudogout. He reports pain in the left wrist is better. He denies fevers or chills. Complains of heartburn and hiccups. - Objective Vital Signs & Weight: Vital Signs (12 hours) Temp Pulse Resp BP BP BP Pulse Ox 08/16/20 16:01 97.7 F 61 16 132/75 98 08/16/20 08:42 65 143/81 H 08/16/20 08:25 96 08/16/20 07:42 97.9 F 65 16 143/81 H 96 Weight Weight 167 lb I&O: 08/15/20 08/16/20 08/17/20 06:59 06:59 06:59 Intake Total 660 1010 Output Total 0 Balance 660 1010 Result Diagrams: 08/13/20 19:35 08/13/20 19:35 Additional Labs: I reviewed labs and MAR Hospitalist ROS - Review of Systems Respiratory: denies: cough, dry, shortness of breath, hemoptysis, SOB with excer tion, pleuritic pain, sputum, wheezing Cardiovascular: denies: chest pain, palpitations, orthopnea, paroxysmal noc. dyspnea, edema, light headedness Gastrointestinal: reports: other (Heartburn, hiccups) Musculoskeletal: reports: hand pain - Medication Medications: Active Medications Generic Name Dose Route Start Last Admin Trade Name Freq PRN Reason Stop Dose Admin Hydrocodone Bitart/Acetaminophen 1 tab 08/14/20 20:05 08/16/20 08:41 Hydrocodone/Acetaminophen 7.5/325 Mg Tablet PO 1 tab Q4H PRN Administration .MILD Pain Aspirin 81 mg 08/16/20 09:00 08/16/20 08:41 Aspirin 81 Mg Enteric Coated Tablet PO 81 mg DAILY ANTONIA Administration Atorvastatin Calcium 20 mg 08/16/20 09:00 08/16/20 08:43 Atorvastatin Calcium 20 Mg Tab PO 20 mg DAILY ANTONIA Administration Calcium Carbonate 1,000 mg 08/14/20 12:02 08/15/20 05:02 Calcium Carbonate 500 Mg Chewtab PO 1,000 mg Q4H PRN Administration Heartburn or Indigestion Colchicine 0.6 mg 08/15/20 23:59 08/16/20 11:25 Colchicine 0.6 Mg Tab PO 08/17/20 00:00 0.6 mg 1200,2359 ANTONIA Administration Enoxaparin Sodium 40 mg 08/14/20 09:00 08/16/20 08:42 Enoxaparin Sodium 40 Mg/0.4 Ml Syringe SC Not Given 09 ANTONIA Lisinopril/HCTZ 1 tab 08/16/20 09:00 08/16/20 08:42 Lisinopril/Hydrochlorothiazide 20/25 Mg Tablet PO 1 tab DAILY ANTONIA Administration Morphine Sulfate 4 mg 08/14/20 20:04 08/15/20 11:58 Morphine 4 Mg/Ml Vial SLOW IVP 4 mg Q4H PRN Administration Pain Pantoprazole Sodium 40 mg 08/16/20 09:00 08/16/20 08:42 Pantoprazole 40 Mg Tab PO 40 mg DAILY ANTONIA Administration - Exam General Appearance: awake alert Eye: anicteric sclera ENT: moist mucosa Neck: supple Heart: RRR Respiratory: CTAB Gastrointestinal: soft, non-tender Extremities: no edema Skin - other findings: Left hand in dressing Psychiatric: normal affect, normal behavior Hosp A/P (1) Pseudogout Code(s): M11.20 - OTHER CHONDROCALCINOSIS, UNSPECIFIED SITE Status: Acute (2) BPH (benign prostatic hyperplasia) Code(s): N40.0 - BENIGN PROSTATIC HYPERPLASIA WITHOUT LOWER URINRY TRACT SYMP Status: Chronic (3) HLD (hyperlipidemia) Code(s): E78.5 - HYPERLIPIDEMIA, UNSPECIFIED Status: Chronic (4) HTN (hypertension) Code(s): I10 - ESSENTIAL (PRIMARY) HYPERTENSION Status: Chronic (5) Sepsis Code(s): A41.9 - SEPSIS, UNSPECIFIED ORGANISM Status: Ruled-out (6) Septic arthritis of wrist, left Code(s): M00.9 - PYOGENIC ARTHRITIS, UNSPECIFIED Status: Ruled-out - Plan Biotics have been discontinued, patient has been started on colchicine for pseudogout flare. Appreciate ID service and hand surgery service input. Follow cultures from incision and drainage. Trial PPI and GI cocktail for hiccups and heartburn.
[2020-08-16] MEDS ORDERED: Lidocaine 2% Viscous Solution 10 ML, Aluminum & Magnesium Hydroxide 30 ML SSW SCH (18:00)
[2020-08-16] MEDS: Pantoprazole 40 MG VIAL IVP SCH (18:33)
[2020-08-17] MEDS: Pantoprazole 40 MG VIAL IVP SCH ×2 (05:05→18:13)
[2020-08-17] MEDS: Aspirin 81 mg Enteric Coated Tablet PO SCH (09:45)
[2020-08-17] MEDS: Enoxaparin Sodium 40 MG/0.4 ML SYRINGE SC SCH (09:46)
[2020-08-17] MEDS: Lisinopril/Hydrochlorothiazide 20/25 mg Tablet PO SCH (09:46)
[2020-08-17] MEDS: Atorvastatin Calcium 20 MG TAB PO SCH (09:46)
[2020-08-17 11:31] LABS: #Eosinphils 0.3 thou/uL (0.0-0.7); #Lymphocytes 1.8 thou/uL (1.20-3.40); #Monocytes 0.6 thou/uL (0.11-0.59); #Neutrophils 3.6 thou/uL (1.40-6.50); %Basophils 0.6 % (0.0-1.0); %Eosinophils 4.7 % (0.0-10.0); %Lymphocytes 28.5 % (21.0-51.0); %Monocytes 9.3 % (0.0-10.0); %Neutrophils 56.9 % (42.0-75.0); Hemoglobin 13.8 g/dL (14.0-18.0); Mean Corpuscular HGB CONC 32.1 g/dL (32.0-36.0); Mean Corpuscular Hemoglobin 28.5 pg (27.0-31.0); Mean Corpuscular Volume 88.9 fL (78.0-98.0); Mean Platelet Volume 6.8 fL (7.4-10.4); Platelet Count 256 thou/uL (130-400); RBC Distribution Width 11.9 % (11.5-14.5); Red Blood Cell (RBC) Count 4.83 mill/uL (4.70-6.10); White Blood Cell (WBC) Count 6.4 thou/uL (4.8-10.8)
[2020-08-17 12:10] LABS: Anion Gap 13 mmol/L (10-20); BUN (Urea Nitrogen) 14 mg/dL (8.4-25.7); Calc. Creatinine Clearance 93 mL/min (70-130); Calcium 8.9 mg/dL (7.8-10.44); Carbon Dioxide 24 mmol/L (23-31); Chloride 103 mmol/L (98-107); Estimated GFR-MDRD Greater than 90; Glucose 132 mg/dL (83-110); Potassium 3.9 mmol/L (3.5-5.1); Sodium 136 mmol/L (136-145)
[2020-08-17 19:15] VITALS: BP 169/89; TEMP 98
--- NOTE | 2020-08-18 01:07 | DIS ---
DATE OF ADMISSION: 08/14/2020 DATE OF DISCHARGE: 08/17/2020 PRIMARY CARE PROVIDER: Jey Garcia MD. DISCHARGE DIAGNOSES: 1. Pseudogout. 2. Sepsis. 3. COVID 2 PCR test negative. 4. Hyponatremia. CONDITION ON DAY OF DISCHARGE: Stable. I assessed Mr. Morales on the day of discharge. He denies any chest pain or shortness of breath. Vital signs are stable. S1 and S2 are heard, regular. Lungs are clear to auscultation bilaterally. CONSULTATIONS DURING THIS HOSPITALIZATION: Infectious Diseases, Dr. Smart and Hand Surgery Dr. Cedeño. HOSPITAL COURSE: Mr. Morales is a pleasant 74-year-old gentleman, who was admitted to [facility] on August 14, 2020, for sepsis secondary to suspected septic arthritis of the left wrist. He was seen by Infectious Diseases and hand surgery services. He underwent left wrist arthroscopic synovectomy, left wrist arthroscopic lavage for drainage of infection, and synovial biopsies to rule out gout. The pathology report showed synovium with pseudogout crystals, no increased numbers of neutrophils, no lymphoid follicles, and no atypia or malignancy. He was treated with colchicine and showed marked improvement in his symptoms. He is being discharged home in a stable condition. He has been prescribed clindamycin 150 mg 3 times a day, 20 doses and naproxen 375 mg 2 times a day, 20 doses. Otherwise, no change was made to his pre-admission home medications. POST ACUTE CARE FOLLOWUP: With primary care provider in [address] Cedeño in 10 days. ACTIVITY: As tolerated. DIET: Heart healthy. DISCHARGE DESTINATION: Home. TIME SPENT: Total amount of time spent coordinating this discharge: 31 minutes. Job ID: [id number]
== END 2020-08-17 19:10 | disposition home or self-care (01) | DRG 854 ==
LOC: ERS 19:11 → 2NO 08-14 01:08 → T4-B 08-15 19:45
PROVIDERS: ADMIT Internal Medicine; ATTEND Internal Medicine
PROC: 0RBP4ZZ Excision of Left Wrist Joint, Percutaneous Endoscopic Approach (ICD-10-PCS; principal; 2020-08-14)
PROC: 0R9 Upper Joints, Drainage (ICD-10-PCS; 2020-08-14)
DX: A41.9 Sepsis, unspecified organism (principal); E87.1 Hypo-osmolality and hyponatremia; L03.114 Cellulitis of left upper limb; M00.9 Pyogenic arthritis, unspecified; M11.232 Other chondrocalcinosis, left wrist; Z20.828 Contact with and (suspected) exposure to other viral communicable diseases; I10 Essential (primary) hypertension; E78.5 Hyperlipidemia, unspecified; K21.9 Gastro-esophageal reflux disease without esophagitis; N52.9 Male erectile dysfunction, unspecified; N40.0 Benign prostatic hyperplasia without lower urinary tract symptoms; I49.5 Sick sinus syndrome; Z95.0 Presence of cardiac pacemaker; Z79.82 Long term (current) use of aspirin; Z79.899 Other long term (current) drug therapy
CPT/HCPCS: 36415; 71045; 80048; 80053; 80202; 81003; 83605; 84484; 85025; 85060; 86140; 87040; 87070; 87086; 87205; 87635; 88305; 89051; 89060; 93005; C9113; J0171; J0692; J1100; J1650; J2001; J2270; J2405; J2704; J3010; J3370; J3490; S0020; U0003

== ENCOUNTER 2021-02-23 09:01 | Emergency (ER) | payer MEDICARE ==
[2021-02-23] MEDS ORDERED: HYDROcodone/Acetaminophen 5/325 mg Tablet ONE (10:20)
[2021-02-23] MEDS ORDERED: Ibuprofen 200 MG TAB ONE (10:21)
[2021-02-23] MEDS ORDERED: Ondansetron ODT 4 MG TAB ONE (10:21)
== END 2021-02-23 11:26 | disposition home or self-care (01) ==
LOC: ERS 09:01
DX: S16.1XXA Strain of muscle, fascia and tendon at neck level, initial encounter (principal); E78.5 Hyperlipidemia, unspecified; E78.00 Pure hypercholesterolemia, unspecified; I10 Essential (primary) hypertension; Z79.82 Long term (current) use of aspirin; Z79.899 Other long term (current) drug therapy
CPT/HCPCS: 72040; 72100; Q0162

== ENCOUNTER 2022-04-09 10:44 | Emergency (ER) | payer MEDICARE ==
[2022-04-09] MEDS ORDERED: Morphine 4 MG/ML VIAL ONE (12:18)
[2022-04-09] MEDS ORDERED: Acetaminophen 650 MG Suppository ONE (12:22)
[2022-04-09] MEDS ORDERED: Acetaminophen 325 MG/10.15 ML UDCUP ONE (12:23)
[2022-04-09] MEDS ORDERED: Acetaminophen 325 MG TAB ONE (12:23)
== END 2022-04-09 13:04 | disposition home or self-care (01) ==
LOC: ERS 10:44
DX: S70.02XA Contusion of left hip, initial encounter (principal); M54.32 Sciatica, left side; W55.22XA Struck by cow, initial encounter; E78.5 Hyperlipidemia, unspecified; E78.00 Pure hypercholesterolemia, unspecified; I10 Essential (primary) hypertension; Z79.82 Long term (current) use of aspirin; Z79.899 Other long term (current) drug therapy
CPT/HCPCS: 96372; J2270

== ENCOUNTER 2023-03-19 14:30 | Outpatient (CLI) | payer MEDICARE ==
[2023-03-19 17:45] LABS: #Basophils 0.1 10x3/uL (0.0-0.2); #Eosinphils 0.4 10x3/uL (0.0-0.5); #Monocytes 0.6 10x3/uL (0.0-1.1); #Neutrophils 4.6 10x3/uL (1.5-8.4); %Basophils 0.8 % (0.0-2.0); %Eosinophils 5.2 % (0.0-6.0); %Lymphocytes 24.2 % (18.0-47.0); %Monocytes 8.5 % (0.0-10.0); Hemoglobin 14.3 g/dL (13.5-17.5); Mean Corpuscular HGB CONC 32.9 g/dL (32.0-36.0); Mean Corpuscular Hemoglobin 27.4 pg (27.0-33.0); Mean Corpuscular Volume 83.3 fl (81.2-95.1); Mean Platelet Volume 9.5 fl (7.4-10.4); Platelet Count 338 10x3/uL (150-450); Prothrombin Time 10.7 sec (9.5-12.1); RBC Distribution Width 13.8 % (11.5-14.5); Red Blood Cell (RBC) Count 5.22 10x6/uL (4.32-5.72); White Blood Cell (WBC) Count 7.5 10x3/uL (3.5-10.5)
[2023-03-19 17:51] LABS: Anion Gap 15 mmol/L (10-20); BUN (Urea Nitrogen) 14 mg/dL (8.4-25.7); Calc. Creatinine Clearance 0 mL/min (70-130); Calcium 8.9 mg/dL (7.8-10.44); Carbon Dioxide 23 mmol/L (23-31); Chloride 105 mmol/L (98-107); Estimated GFR 89; Glucose 124 mg/dL (83-110); Potassium 4.1 mmol/L (3.5-5.1); Sodium 139 mmol/L (136-145)
== END 2023-03-19 14:31 | disposition home or self-care (01) ==
LOC: LABBT 14:30
PROVIDERS: ATTEND Orthopaedic Surgery
DX: Z01.818 Encounter for other preprocedural examination (principal); M17.11 Unilateral primary osteoarthritis, right knee
CPT/HCPCS: 80048; 85025; 85610; 87081; 93005; 93010

== ENCOUNTER 2023-03-24 05:34 | Observation (INO) | payer MEDICARE ==
[2023-03-19 15:07] VITALS: BMI 28.3
[2023-03-24] MEDS ORDERED: Sodium Chloride 0.9% 100 ML ONE ×2 (05:56→06:50)
[2023-03-24] MEDS ORDERED: Tranexamic Acid 1,000 MG/10 ML VIAL ONE (05:56)
[2023-03-24] MEDS ORDERED: Vancomycin 1 GM/200 ML (FROZEN) BAG ONE (05:56)
[2023-03-24] MEDS ORDERED: Bupivacaine PF 0.5% 30 ML VIAL ONE ×2 (06:29→06:44)
[2023-03-24] MEDS ORDERED: Fentanyl 250 MCG/5 ML VIAL ONE (06:29)
[2023-03-24] MEDS ORDERED: Acetaminophen 325 MG TAB PO PRN (06:42)
[2023-03-24] MEDS ORDERED: diphenhydrAMINE 25 MG CAP PO PRN (06:42)
[2023-03-24] MEDS ORDERED: Promethazine HCl 25 MG/ML VIAL IM PRN (06:42)
[2023-03-24] MEDS ORDERED: Zolpidem Tartrate 5 MG TAB PO PRN (06:42)
[2023-03-24] MEDS ORDERED: HYDROcodone/Acetaminophen 10/325 mg Tablet PO PRN (06:42)
[2023-03-24] MEDS ORDERED: Ondansetron PF 4 MG/2 ML Vial IVP PRN (06:42)
[2023-03-24] MEDS ORDERED: fentaNYL 50 mcg/mL 1 mL Vial ONE (06:44)
[2023-03-24] MEDS ORDERED: Lidocaine 1% (PF) 30 ML VIAL ONE (06:44)
[2023-03-24] MEDS ORDERED: Midazolam HCl 2 mg/2 ml Vial ONE (06:44)
[2023-03-24] MEDS ORDERED: fentaNYL 50 mcg/mL 1 mL Vial SLOW IVP PRN ×2 (06:48→08:08)
[2023-03-24] MEDS ORDERED: CEFAZOLIN 2 GM VIAL ONE (06:50)
[2023-03-24] MEDS ORDERED: Propofol 1,000 MG/100 ML VIAL IV ONE (07:07)
[2023-03-24] MEDS ORDERED: Bupivacaine HCl 0.5%/Epinephrine 1:200,000/PF 30 ml Vial ONE (07:14)
[2023-03-24] MEDS ORDERED: ePHEDrine Sulfate 50 MG/10 ML VIAL ONE (07:14)
[2023-03-24] MEDS ORDERED: Ropivacaine 0.2% 550 ML 550 ML NERVE BLCK SCH (08:15)
[2023-03-24] MEDS ORDERED: traMADol HCl 50 MG TAB PO PRN ×2 (08:15)
[2023-03-24] MEDS ORDERED: Ergocalciferol 1.25 MG(50,000 UNITS) CAP PO SCH (09:00)
[2023-03-24] MEDS ORDERED: Aspirin 81 mg Enteric Coated Tablet PO SCH (09:00)
[2023-03-24] MEDS ORDERED: Promethazine HCl 25 MG/ML VIAL IM/IV PRN (09:00)
[2023-03-24] MEDS ORDERED: Ondansetron HCl/PF 4 MG/2 ML Vial IVP PRN (09:00)
[2023-03-24] MEDS ORDERED: HYDROmorphone 2 MG/ML VIAL SLOW IVP PRN (09:00)
[2023-03-24] MEDS: Sodium Chloride 0.9% 1,000 ML IV SCH ×2 (11:01→18:31)
[2023-03-24] MEDS: Ketorolac Tromethamine 30 MG/ML VIAL IVP SCH ×3 (11:44→23:37)
[2023-03-24] MEDS: Aspirin 81 mg Enteric Coated Tablet PO SCH ×2 (11:57→20:29)
[2023-03-24] MEDS: Atorvastatin Calcium 20 MG TAB PO SCH (11:57)
[2023-03-24] MEDS: Furosemide 20 MG TAB PO SCH (11:58)
[2023-03-24] MEDS: Potassium Chloride 10 MEQ TAB PO SCH (11:58)
[2023-03-24] MEDS ORDERED: Ketorolac Tromethamine 30 MG/ML VIAL IVP SCH (14:00)
[2023-03-24] MEDS: CEFAZOLIN 2 GM in Sodium Chloride 0.9% 100 ML IVPB SCH ×2 (15:23→23:36)
[2023-03-24] MEDS: HYDROcodone/Acetaminophen 10/325 mg Tablet PO PRN (17:40)
[2023-03-25] MEDS: Sodium Chloride 0.9% 1,000 ML IV SCH (03:22)
[2023-03-25 04:55] VITALS: TEMP 98.4
[2023-03-25 06:02] LABS: Hemoglobin 12.5 g/dL (14.0-18.0); Mean Corpuscular HGB CONC 32.1 g/dL (32.0-36.0); Mean Corpuscular Hemoglobin 27.7 pg (27.0-31.0); Mean Corpuscular Volume 86.3 fl (78.0-98.0); Platelet Count 252 10x3/uL (130-400); RBC Distribution Width 13.9 % (11.5-14.5); Red Blood Cell (RBC) Count 4.52 mill/uL (4.70-6.10); White Blood Cell (WBC) Count 8.6 10x3/uL (4.8-10.8)
[2023-03-25] MEDS: Ketorolac Tromethamine 30 MG/ML VIAL IVP SCH (06:03)
[2023-03-25] MEDS: HYDROcodone/Acetaminophen 10/325 mg Tablet PO PRN (06:04)
[2023-03-25] MEDS: Furosemide 20 MG TAB PO SCH (08:11)
[2023-03-25] MEDS: Aspirin 81 mg Enteric Coated Tablet PO SCH (08:12)
[2023-03-25] MEDS: Potassium Chloride 10 MEQ TAB PO SCH (08:12)
[2023-03-25] MEDS: Atorvastatin Calcium 20 MG TAB PO SCH (08:12)
[2023-03-25 08:34] VITALS: BP 165/91
[2023-03-25] MEDS ORDERED: Ferrous Gluconate 324 MG TAB PO SCH (09:00)
[2023-03-25] MEDS ORDERED: Senokot S 8.6-50 MG TAB PO SCH (09:00)
[2023-03-25] MEDS ORDERED: Multivitamin W/ Minerals 1 TAB PO SCH (09:00)
== END 2023-03-25 11:13 | disposition home or self-care (01) ==
LOC: SDC 05:34 → SJJU 10:45
PROVIDERS: ADMIT Orthopaedic Surgery; ATTEND Orthopaedic Surgery
PROC: 0SRC0J9 Replacement of Right Knee Joint with Synthetic Substitute, Cemented, Open Approach (ICD-10-PCS; principal; 2023-03-24)
DX: M17.11 Unilateral primary osteoarthritis, right knee (principal); E78.5 Hyperlipidemia, unspecified; I10 Essential (primary) hypertension; K21.9 Gastro-esophageal reflux disease without esophagitis; N52.9 Male erectile dysfunction, unspecified; N40.1 Benign prostatic hyperplasia with lower urinary tract symptoms; R35.1 Nocturia; Z79.82 Long term (current) use of aspirin; Z79.899 Other long term (current) drug therapy; Z88.8 Allergy status to other drugs, medicaments and biological substances
CPT/HCPCS: 20985; 27447; 73560; 85027; 97110; 97116 ×2; 97530; A4306; C1713; C1776; J3370; 36415; 96374; 96375; 96376; G0378; J1885; J2001; J2250; J2704; J2795; J3010; J3490; S0020

== ENCOUNTER 2023-09-19 05:47 | Emergency (ER) | payer MEDICARE ==
[2023-09-19 06:35] LABS: #Basophils 0.1 thou/uL (0.0-0.2); #Eosinphils 0.3 thou/uL (0.0-0.7); #Monocytes 0.9 thou/uL (0.11-0.59); #Neutrophils 6.8 thou/uL (1.40-6.50); %Basophils 0.7 % (0.0-1.0); %Eosinophils 3.3 % (0.0-10.0); %Monocytes 8.5 % (0.0-10.0); %Neutrophils 68.3 % (42.0-75.0); Hematocrit 42.6 % (42.0-52.0); Hemoglobin 14.2 g/dL (14.0-18.0); Mean Corpuscular HGB CONC 33.3 g/dL (32.0-36.0); Mean Platelet Volume 8.7 fL (7.4-10.4); Platelet Count 294 10x3/uL (130-400); RBC Distribution Width 14.3 % (11.5-14.5); Red Blood Cell (RBC) Count 5.07 mill/uL (4.70-6.10)
[2023-09-19 06:55] LABS: Bacteria/HPF None Seen HPF (None Seen); Bilirubin Negative (Negative); Blood, Urine Negative (Negative); CAUTI Indications for Culture Pelvic or flank pain; Clarity Clear (Clear); Glucose, Urine (Dipstick) Normal (Negative); Ketone, Urine Negative (Negative); Leukocyte Negative Leu/uL (Negative); Nitrite Negative (Negative); Protein, Urine (Dipstick) 20 mg/dL (Neg-Trace); Specific Gravity, Urine 1.028 (1.002-1.036); Squamous Epithelial None Seen HPF (0-3); WBC/HPF 0-3 HPF (0-3)
[2023-09-19 07:04] LABS: Urine Culture Reflex No No
[2023-09-19 07:11] LABS: Troponin I Less than 0.010 ng/mL (< 0.028)
[2023-09-19 07:13] LABS: ALT (SGPT) 26 U/L (8-55); AST (SGOT) 25 U/L (5-34); Albumin 4.5 g/dL (3.4-4.8); Alkaline Phosphatase 124 U/L (40-110); Anion Gap 14 mmol/L (10-20); BUN (Urea Nitrogen) 19 mg/dL (8.4-25.7); Bilirubin, Total 0.9 mg/dL (0.2-1.2); Calc. Creatinine Clearance 0 mL/min (70-130); Calcium 9.4 mg/dL (7.8-10.44); Carbon Dioxide 23 mmol/L (23-31); Chloride 106 mmol/L (98-107); Estimated GFR 90; Globulin 3.4 g/dL (2.4-3.5); Glucose 110 mg/dL (83-110); Lipase 23 U/L (8-78); Protein, Total 7.9 g/dL (5.8-8.1); Sodium 139 mmol/L (136-145)
[2023-09-19] MEDS ORDERED: Ketorolac Tromethamine 30 MG/ML VIAL ONE (07:24)
[2023-09-19] MEDS ORDERED: fentaNYL 50 mcg/mL 1 mL Vial ONE (07:24)
[2023-09-19] MEDS ORDERED: Ondansetron PF 4 MG/2 ML Vial ONE (07:24)
== END 2023-09-19 08:24 | disposition home or self-care (01) ==
LOC: ERS 05:47
DX: M54.50 Low back pain, unspecified (principal); I10 Essential (primary) hypertension; E78.00 Pure hypercholesterolemia, unspecified; Z79.899 Other long term (current) drug therapy
CPT/HCPCS: 74176; 80053; 81001; 83690; 84484; 85025; 93005; J3010; 96374; 96375; J1885; J2405

== ENCOUNTER 2023-12-05 09:37 | Emergency (ER) | payer MEDICARE ==
[2023-12-05 10:43] LABS: #Basophils 0.1 thou/uL (0.0-0.2); #Eosinphils 0.2 thou/uL (0.0-0.7); #Monocytes 0.9 thou/uL (0.11-0.59); #Neutrophils 7.7 thou/uL (1.40-6.50); %Basophils 0.6 % (0.0-1.0); %Eosinophils 1.7 % (0.0-10.0); %Lymphocytes 18.4 % (21.0-51.0); %Monocytes 8.3 % (0.0-10.0); %Neutrophils 70.6 % (42.0-75.0); Hematocrit 45.2 % (42.0-52.0); Hemoglobin 14.7 g/dL (14.0-18.0); Mean Corpuscular HGB CONC 32.5 g/dL (32.0-36.0); Mean Corpuscular Hemoglobin 28.4 pg (27.0-31.0); Mean Corpuscular Volume 87.4 fl (78.0-98.0); Mean Platelet Volume 8.9 fL (7.4-10.4); Platelet Count 257 10x3/uL (130-400); RBC Distribution Width 14.8 % (11.5-14.5); Red Blood Cell (RBC) Count 5.17 mill/uL (4.70-6.10); White Blood Cell (WBC) Count 10.9 10x3/uL (4.8-10.8)
[2023-12-05 11:08] LABS: ALT (SGPT) 36 U/L (8-55); AST (SGOT) 28 U/L (5-34); Albumin 4.1 g/dL (3.4-4.8); Alkaline Phosphatase 149 U/L (40-110); Anion Gap 8 mmol/L (10-20); BUN (Urea Nitrogen) 11 mg/dL (8.4-25.7); Bilirubin, Total 0.6 mg/dL (0.2-1.2); Calc. Creatinine Clearance 0 mL/min (70-130); Calcium 9.3 mg/dL (7.8-10.44); Carbon Dioxide 31 mmol/L (23-31); Chloride 105 mmol/L (98-107); Estimated GFR 91; Globulin 3.1 g/dL (2.4-3.5); Glucose 93 mg/dL (83-110); Potassium 4.1 mmol/L (3.5-5.1); Protein, Total 7.2 g/dL (5.8-8.1); Sodium 140 mmol/L (136-145)
[2023-12-05 11:10] LABS: Troponin I Less than 0.010 ng/mL (< 0.028)
[2023-12-05 12:15] LABS: Bacteria/HPF None Seen HPF (None Seen); Bilirubin Negative (Negative); Blood, Urine Negative (Negative); CAUTI Indications for Culture Dysuria,urgency,freq; Clarity Clear (Clear); Glucose, Urine (Dipstick) Normal (Negative); Ketone, Urine Negative (Negative); Leukocyte Negative Leu/uL (Negative); Nitrite Negative (Negative); Protein, Urine (Dipstick) Negative (Neg-Trace); RBC/HPF 0-3 HPF (0-3); Specific Gravity, Urine 1.006 (1.002-1.036); Squamous Epithelial None Seen HPF (0-3); Urobilinogen Normal mg/dL (Less than 2); WBC/HPF None Seen HPF (0-3); pH, Urine 7.5 (5.0-9.0)
[2023-12-05 12:17] LABS: Urine Culture Reflex No No
== END 2023-12-05 13:55 | disposition home or self-care (01) ==
LOC: ERS 09:37
DX: I10 Essential (primary) hypertension (principal); R51.9 Headache, unspecified; E78.00 Pure hypercholesterolemia, unspecified; Z79.82 Long term (current) use of aspirin; Z79.899 Other long term (current) drug therapy; Z95.0 Presence of cardiac pacemaker
CPT/HCPCS: 70450; 71045; 80053; 81001; 84484; 85025; 93005

== ENCOUNTER 2024-04-20 12:04 | Outpatient (CLI) | payer MEDICARE | END 2024-04-20 12:05 | disposition home or self-care (01) | LOC: CT 12:04 | PROVIDERS: ATTEND Orthopaedic Surgery | DX: M17.12 Unilateral primary osteoarthritis, left knee (principal); M16.12 Unilateral primary osteoarthritis, left hip; M19.072 Primary osteoarthritis, left ankle and foot ==

== ENCOUNTER 2024-04-26 10:28 | Outpatient (CLI) | payer MEDICARE ==
[2024-04-26 11:37] LABS: #Basophils 0.08 10x3/uL (0.0-0.2); #Eosinphils 0.35 10x3/uL (0.0-0.5); #Monocytes 0.77 10x3/uL (0.0-1.1); #Neutrophils 5.52 10x3/uL (1.5-8.4); %Basophils 0.9 % (0.0-2.0); %Eosinophils 4.1 % (0.0-6.0); %Lymphocytes 20.7 % (18.0-47.0); %Monocytes 9.1 % (0.0-10.0); Hematocrit 40.8 % (38.8-50.0); Hemoglobin 13.6 g/dL (13.5-17.5); Mean Corpuscular HGB CONC 33.3 g/dL (32.0-36.0); Mean Corpuscular Hemoglobin 27.9 pg (27.0-33.0); Mean Corpuscular Volume 83.6 fL (81.2-95.1); Mean Platelet Volume 8.7 fL (7.4-10.4); Platelet Count 275 10x3/uL (150-450); RBC Distribution Width 13.1 % (11.5-14.5); Red Blood Cell (RBC) Count 4.88 10x6/uL (4.32-5.72); White Blood Cell (WBC) Count 8.5 10x3/uL (3.5-10.5)
[2024-04-26 12:14] LABS: Prothrombin Time 11.1 sec (9.5-12.1)
[2024-04-26 12:16] LABS: Anion Gap 14 mmol/L (10-20); BUN (Urea Nitrogen) 19 mg/dL (8.4-25.7); Calc. Creatinine Clearance 0 mL/min (70-130); Calcium 9.2 mg/dL (7.8-10.44); Carbon Dioxide 24 mmol/L (23-31); Chloride 103 mmol/L (98-107); Estimated GFR 75; Glucose 88 mg/dL (83-110); Potassium 3.7 mmol/L (3.5-5.1); Sodium 137 mmol/L (136-145)
== END 2024-04-26 10:29 | disposition home or self-care (01) ==
LOC: LABBT 10:28
PROVIDERS: ATTEND Orthopaedic Surgery
DX: Z01.818 Encounter for other preprocedural examination (principal); M17.12 Unilateral primary osteoarthritis, left knee
CPT/HCPCS: 80048; 85025; 85610; 87081; 93005; 93010

== ENCOUNTER 2024-05-04 06:51 | Observation (INO) | payer MEDICARE ==
[2024-05-04] MEDS ORDERED: CEFAZOLIN 2 GM VIAL ONE (08:08)
[2024-05-04] MEDS ORDERED: Tranexamic Acid 1,000 MG/10 ML VIAL ONE (08:08)
[2024-05-04] MEDS ORDERED: Vancomycin 1 GM/200 ML (FROZEN) BAG ONE (08:08)
[2024-05-04] MEDS ORDERED: Sodium Chloride 0.9% 200 ML ONE (08:08)
[2024-05-04] MEDS ORDERED: EPINEPHrine 1 MG/ML VIAL ONE ×2 (08:09→09:00)
[2024-05-04] MEDS ORDERED: fentaNYL 50 mcg/mL 1 mL Vial ONE ×2 (08:10→12:50)
[2024-05-04] MEDS ORDERED: Midazolam HCl 2 mg/2 ml Vial ONE (08:10)
[2024-05-04] MEDS ORDERED: Bupivacaine PF 0.5% 30 ML VIAL ONE (08:10)
[2024-05-04] MEDS ORDERED: PROPOFOL 20 ML ONE (08:43)
[2024-05-04] MEDS ORDERED: HYDROmorphone 2 MG/ML VIAL ONE (08:43)
[2024-05-04] MEDS ORDERED: Ropivacaine 0.2% 550 ML 550 ML NERVE BLCK SCH (08:45)
[2024-05-04] MEDS ORDERED: Ondansetron PF 4 MG/2 ML Vial IVP PRN ×2 (08:45→12:32)
[2024-05-04] MEDS ORDERED: Zolpidem Tartrate 5 MG TAB PO PRN ×2 (08:45→12:32)
[2024-05-04] MEDS ORDERED: HYDROcodone/Acetaminophen 10/325 mg Tablet PO PRN (08:45)
[2024-05-04] MEDS ORDERED: Promethazine HCl 25 MG/ML VIAL IM PRN ×2 (08:45→12:32)
[2024-05-04] MEDS ORDERED: traMADol HCl 50 MG TAB PO PRN ×2 (08:45)
[2024-05-04] MEDS ORDERED: fentaNYL 50 mcg/mL 1 mL Vial SLOW IVP PRN (08:46)
[2024-05-04] MEDS ORDERED: Lidocaine 2% PF 5 ML VIAL ONE (08:47)
[2024-05-04] MEDS ORDERED: Bupivacaine 0.25% HCL 30 ML VIAL ONE (09:00)
[2024-05-04] MEDS ORDERED: Dexamethasone 20 MG/5 ML VIAL ONE (09:42)
[2024-05-04] MEDS ORDERED: Ondansetron PF 4 MG/2 ML Vial ONE (09:42)
[2024-05-04] MEDS ORDERED: PHENYLEPHRINE-NS 100 MCG/ML 10 ML SYRINGE ONE (09:46)
[2024-05-04] MEDS ORDERED: Ondansetron HCl/PF 4 MG/2 ML Vial IVP PRN (11:03)
[2024-05-04] MEDS ORDERED: Sevoflurane 250 ML INH ANEST BOTTLE ONE (11:12)
[2024-05-04] MEDS: Sodium Chloride 0.9% 1,000 ML IV SCH (12:00)
[2024-05-04] MEDS: Ketorolac Tromethamine 30 MG (1 mL) VIAL IVP SCH (12:00)
[2024-05-04] MEDS ORDERED: Acetaminophen 325 MG TAB PO PRN (12:32)
[2024-05-04] MEDS ORDERED: diphenhydrAMINE 25 MG CAP PO PRN (12:32)
[2024-05-04] MEDS ORDERED: Ketorolac Tromethamine 30 MG (1 mL) VIAL ONE (12:40)
[2024-05-04 17:22] VITALS: BMI 28.3
[2024-05-04] MEDS: CEFAZOLIN 2 GM in Sodium Chloride 0.9% 100 ML IVPB SCH (17:38)
[2024-05-04] MEDS: Aspirin 81 mg Enteric Coated Tablet PO SCH (21:52)
[2024-05-04] MEDS: HYDROcodone/Acetaminophen 10/325 mg Tablet PO PRN (21:53)
[2024-05-05 07:05] LABS: Hematocrit 35.1 % (42.0-52.0); Hemoglobin 11.6 g/dL (14.0-18.0); Mean Corpuscular Hemoglobin 27.8 pg (27.0-31.0); Mean Platelet Volume 9.4 fL (7.4-10.4); Platelet Count 256 10x3/uL (130-400); RBC Distribution Width 12.9 % (11.5-14.5); Red Blood Cell (RBC) Count 4.18 mill/uL (4.70-6.10)
[2024-05-05] MEDS: Potassium Chloride 10 MEQ TAB PO SCH (08:42)
[2024-05-05] MEDS: dilTIAZem CD 240 MG CAP PO SCH (08:42)
[2024-05-05] MEDS: Senokot S 8.6-50 MG TAB PO SCH (08:42)
[2024-05-05] MEDS: Multivitamin W/ Minerals 1 TAB PO SCH (08:42)
[2024-05-05] MEDS: Ferrous Gluconate 324 MG TAB PO SCH (08:42)
[2024-05-05] MEDS: Pantoprazole DR 40 MG TAB PO SCH (08:43)
[2024-05-05] MEDS: Atorvastatin Calcium 20 MG TAB PO SCH (08:43)
[2024-05-05] MEDS: Hydrochlorothiazide 25 MG TAB PO SCH (08:43)
[2024-05-05] MEDS: Furosemide 20 MG TAB PO SCH (08:43)
[2024-05-05 09:13] VITALS: BP 162/74; TEMP 98.2
== END 2024-05-05 12:32 | disposition home or self-care (01) ==
LOC: SDC 06:51 → SURG B 15:46
PROVIDERS: ADMIT Orthopaedic Surgery; ATTEND Orthopaedic Surgery
PROC: 0SRD0JZ Replacement of Left Knee Joint with Synthetic Substitute, Open Approach (ICD-10-PCS; principal; 2024-05-04)
DX: M17.12 Unilateral primary osteoarthritis, left knee (principal); I10 Essential (primary) hypertension; E78.00 Pure hypercholesterolemia, unspecified; R00.1 Bradycardia, unspecified; R00.0 Tachycardia, unspecified; Z79.82 Long term (current) use of aspirin; Z79.899 Other long term (current) drug therapy; Z98.890 Other specified postprocedural states; Z96.653 Presence of artificial knee joint, bilateral; E78.5 Hyperlipidemia, unspecified; Z88.8 Allergy status to other drugs, medicaments and biological substances; J30.1 Allergic rhinitis due to pollen
CPT/HCPCS: 27447; 64447; 73560; 85027; 97110 ×2; 97116 ×2; 97530; A4306; C1713; C1776; C1889; J0171; J0665 ×2; J1100; J1170; J1885 ×2; J2001; J2250; J2405; J2704; J2795; J3010; J3370; J3490 ×2; J7050; 36415

== ENCOUNTER 2024-05-10 13:15 | Outpatient (CLI) | payer MEDICARE | END 2024-05-10 13:16 | disposition home or self-care (01) | LOC: ULT 13:15 | PROVIDERS: ATTEND Family Medicine | DX: M25.561 Pain in right knee (principal) ==